=== PATIENT | male | born 1960 | race Caucasian/White ===

== ENCOUNTER 2020-01-28 16:28 | Inpatient (IN) | payer OTHER ==
[~2020-01-28 16:28] MED LIST: Iopamidol-370 76% 500 ML 1 ML ONE
[2020-01-28 17:26] LABS: Actual Bicarbonate (HCO3a) 34.2 mEq/L (22-28); Analyzer IN Cardio ER; Base Excess (BEa) 6.8 mEq/L (-2.0 to +3.0); CO2 Tension 59.4 mmHg (35.0-45.0); Calcium, Ionized (arterial) 1.21 mmol/L (1.12-1.30); Carboxyhemoglobin (COHb) 2.7 gm% (0.0-3.0); Hemoglobin (Hb) 15.7 g/dL (14.0-18.0); O2 Tension (PaO2), arterial 126.6 mmHg (80.0-100.0); Potassium - ABG Lab 3.89 mmol/L (3.70-5.30); pH, Arterial 7.38 (7.35-7.45)
[2020-01-28] MEDS ORDERED: Albuterol 200 PUFF (6.7GM INHALER) ONE (17:30)
[2020-01-28 17:38] LABS: Puncture Site LRA
[2020-01-28 17:41] LABS: #Basophils 0.1 thou/uL (0.0-0.2); #Eosinphils 0.1 thou/uL (0.0-0.7); #Lymphocytes 1.1 thou/uL (1.20-3.40); #Monocytes 0.6 thou/uL (0.11-0.59); #Neutrophils 8.5 thou/uL (1.40-6.50); %Basophils 0.7 % (0.0-1.0); %Eosinophils 0.8 % (0.0-10.0); %Lymphocytes 10.3 % (21.0-51.0); %Monocytes 5.9 % (0.0-10.0); %Neutrophils 82.2 % (42.0-75.0); Hemoglobin 15.2 g/dL (14.0-18.0); Mean Corpuscular HGB CONC 32.4 g/dL (32.0-36.0); Mean Corpuscular Hemoglobin 31.7 pg (27.0-31.0); Mean Platelet Volume 7.3 fL (7.4-10.4); Platelet Count 284 thou/uL (130-400); RBC Distribution Width 11.6 % (11.5-14.5); Red Blood Cell (RBC) Count 4.81 mill/uL (4.70-6.10); White Blood Cell (WBC) Count 10.3 thou/uL (4.8-10.8)
--- NOTE | 2020-01-28 17:47 | RAD ---
RADIOGRAPH CHEST 1 VIEW: DATE: 01/28/2020 HISTORY: 59-year-old male with dyspnea COMPARISON: None FINDINGS: There is hyperinflation of the lungs, consistent with COPD. There is a moderate sized triangular cruz on of opacification at right medial lung apex, with stranding and airspace opacity, chronic versus acute. There is no pulmonary edema, cardiomegaly or pneumothorax. The lateral costophrenic angles are not effaced. IMPRESSION: 1)nonspecific opacity at right medial lung apex. Uncertain whether chronic or acute. Consider CT 2) emphysema.
[2020-01-28 18:03] LABS: ALT (SGPT) 12 U/L (8-55); AST (SGOT) 17 U/L (5-34); Albumin 4.3 g/dL (3.5-5.0); Alcohol Less than 10 mg/dL (Less than 10); Alkaline Phosphatase 82 U/L (40-110); Anion Gap 15 mmol/L (10-20); BUN (Urea Nitrogen) 15 mg/dL (8.4-25.7); Bilirubin, Total 0.5 mg/dL (0.2-1.2); Calc. Creatinine Clearance 0 mL/min (70-130); Calcium 9.2 mg/dL (7.8-10.44); Carbon Dioxide 31 mmol/L (22-29); Chloride 102 mmol/L (98-107); Globulin 2.5 g/dL (2.4-3.5); Glucose 138 mg/dL (70-105); Protein, Total 6.8 g/dL (6.0-8.3); Sodium 144 mmol/L (136-145)
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
[2020-01-28] MEDS ORDERED: niCARdipine 20MG In NaCl 20 MG/200 ML BAG ONE ×3 (18:06→23:59)
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
[2020-01-28 18:44] LABS: Hemoglobin A1c 5.1 % (4.0-6.0)
[2020-01-28 18:45] LABS: PTT 30.3 sec (22.9-36.1); Prothrombin Time 12.8 sec (12.0-14.7)
[2020-01-28] MEDS ORDERED: cefTRIAXone\\ROCEPHIN 1 GM VIAL ONE (18:58)
[2020-01-28] MEDS ORDERED: Azithromycin 500 MG VIAL ONE (18:58)
[2020-01-28 19:09] LABS: SARS-CoV-2 NAA Rapid Test Not Detected (NotDetected)
[2020-01-28 19:22] LABS: Bacteria/HPF None Seen HPF (None Seen); Bilirubin Negative (Negative); Blood, Urine 1+ (Negative); Clarity Turbid (Clear); Glucose, Urine (Dipstick) Normal (Negative); Ketone, Urine Negative (Negative); Leukocyte Negative Leu/uL (Negative); Nitrite Negative (Negative); Protein, Urine (Dipstick) 10 mg/dL (Neg-Trace); Specific Gravity, Urine 1.038 (1.002-1.036); Squamous Epithelial None Seen HPF (0-3); Urobilinogen Normal mg/dL (Less than 2); WBC/HPF 0-3 HPF (0-3); pH, Urine 7.5 (5.0-9.0)
[2020-01-28 19:24] LABS: Amphetamine Not Detected (NotDetected); Barbiturates Screen Not Detected (NotDetected); Benzodiazepine Screen Not Detected (NotDetected); Cocaine Metabolite Screen Not Detected (NotDetected); Medtox Control Line Valid? VALID (VALID); Medtox Reader # READER 4; Methadone Not Detected (NotDetected); Methamphetamine Not Detected (NotDetected); Opiate Screen Not Detected (NotDetected); Oxycodone Screen Not Detected (NotDetected); Phencyclidine (PCP) Not Detected (NotDetected); THC/Cannabinoid Screen Detected (NotDetected); Tricyclic Screen Not Detected (NotDetected)
[2020-01-28] MEDS ORDERED: Milk Of Magnesia 30 ML UDCUP PO PRN (22:00)
[2020-01-28] MEDS ORDERED: Ondansetron PF 4 MG/2 ML Vial IVP PRN (22:00)
[2020-01-28] MEDS ORDERED: Bisacodyl 10 MG SUPP PR PRN (22:00)
[2020-01-28] MEDS ORDERED: Acetaminophen 325 MG TAB PO PRN (22:00)
[2020-01-28] MEDS ORDERED: Labetalol HCl 100 MG/20 ML VIAL SLOW IVP PRN (22:00)
[2020-01-28] MEDS ORDERED: Mag-Al 1200 mg/1200 mg/30 ML UDCUP PO PRN (22:00)
[2020-01-28] MEDS ORDERED: Ondansetron ODT 4 MG TAB PO PRN (22:06)
[2020-01-28] MEDS ORDERED: Lorazepam 1 MG TAB PO PRN (22:07)
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
[2020-01-28] MEDS ORDERED: Folic Acid 1 MG TAB PO SCH (22:15)
[2020-01-28] MEDS ORDERED: Thiamine 100 MG TAB PO SCH (22:15)
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
[2020-01-29] MEDS: Nitroglycerin 2% Ointment 1 INCH/1 GM Packet TOP SCH ×3 (02:27→13:02)
[2020-01-29] MEDS: niCARdipine 25 MG in Sodium Chloride 0.9% 250 ML 240 ML IVPB PRN ×4 (02:36→22:12)
[2020-01-29 03:48] LABS: #Basophils 0.1 thou/uL (0.0-0.2); #Eosinphils 0.1 thou/uL (0.0-0.7); #Lymphocytes 1.5 thou/uL (1.20-3.40); #Monocytes 0.8 thou/uL (0.11-0.59); #Neutrophils 7.5 thou/uL (1.40-6.50); %Basophils 0.7 % (0.0-1.0); %Eosinophils 0.8 % (0.0-10.0); %Lymphocytes 14.9 % (21.0-51.0); %Monocytes 8.1 % (0.0-10.0); %Neutrophils 75.4 % (42.0-75.0); Hemoglobin 14.5 g/dL (14.0-18.0); Mean Corpuscular HGB CONC 33.2 g/dL (32.0-36.0); Mean Corpuscular Volume 99.4 fL (78.0-98.0); Mean Platelet Volume 7.7 fL (7.4-10.4); Platelet Count 229 thou/uL (130-400); RBC Distribution Width 11.6 % (11.5-14.5); White Blood Cell (WBC) Count 9.9 thou/uL (4.8-10.8)
[2020-01-29 04:16] LABS: Anion Gap 12 mmol/L (10-20); BUN (Urea Nitrogen) 11 mg/dL (8.4-25.7); Calc. Creatinine Clearance 97 mL/min (70-130); Calcium 8.3 mg/dL (7.8-10.44); Carbon Dioxide 30 mmol/L (22-29); Cardiac Risk 2.7 (Less than 4.5); Chloride 105 mmol/L (98-107); Cholesterol 170 mg/dl (< 200 Desired); Glucose 118 mg/dL (70-105); HDL Cholesterol 63 mg/dL (>60 Neg Risk); LDL Cholesterol, Calculated 96 mg/dL; Magnesium 1.9 mg/dL (1.6-2.6); Sodium 143 mmol/L (136-145); Triglycerides 53 mg/dL (Less than 150); Troponin I 0.019 ng/mL (< 0.028)
--- NOTE | 2020-01-29 07:57 | CT ---
PRELIMINARY REPORT/[facility]/EMERGENCY AFTER HOURS PROCEDURE: EXAM: CT Head Without Intravenous Contrast. CLINICAL HISTORY: Change in NIH TECHNIQUE: Axial computed tomography images of the head/brain without intravenous contrast. COMPARISON: January 28, 2020 FINDINGS: BRAIN: Stable hemorrhage in the left thalamus with stable intraventricular hemorrhage and hydrocephal us. No new hemorrhage, mass-effect, midline shift or vascular territory stroke. ORBITS: The orbits are unremarkable. SINUSES AND MASTOIDS: The paranasal sinuses and mastoid air cells are clear. SOFT TISSUES: No significant facial or scalp soft tissue swelling evident. No radiopaque foreign body is seen. BONES: No acute skull fracture. IMPRESSION: Stable hemorrhage in the left thalamus with stable intraventricular hemorrhage and hydroc ephalus. ELECTRONICALLY SIGNED BY: Aline Ramirez MD Jan 29, 2020 12:32:06 AM [facility] FINAL REPORT EMERGENT AFTER HOURS CT OF THE BRAIN WITHOUT CONTRAST: COMPARISON: 01/28/2020. FINDINGS/IMPRESSION: I agree with the findings and impression given in the preliminary report per [facility] physici an. There is a stable thalamic hemorrhage extending into the lateral ventricles with stable enlargem ent of the lateral ventricles. Very minimal midline shift is seen. No significant change has occurr ed compared to the prior examination. POS: EAA
[2020-01-29] MEDS: Carvedilol 6.25 MG TAB PO SCH ×2 (08:26→17:42)
[2020-01-29] MEDS: Cyanocobalamin (Vitamin B-12) 1,000 MCG TAB PO SCH (08:26)
[2020-01-29] MEDS: cloNIDine 0.1 MG TAB PO SCH ×2 (08:26→20:21)
[2020-01-29] MEDS: Folic Acid 1 MG TAB PO SCH (08:26)
[2020-01-29] MEDS: Famotidine 20 MG TAB PO SCH ×2 (08:26→20:22)
[2020-01-29] MEDS: Docusate 100 MG CAP PO SCH ×2 (08:26→20:22)
[2020-01-29] MEDS: Thiamine 100 MG TAB PO SCH (08:27)
[2020-01-29] MEDS: Multivit, Therapeutic 1 TAB PO SCH (08:27)
--- NOTE | 2020-01-29 08:45 | CT ---
CT OF THE BRAIN WITHOUT CONTRAST: COMPARISON: 01/29/2020. HISTORY: Intracranial hemorrhage. TECHNIQUE: Multiple contiguous axial images were obtained in a CTA of the brain without contrast. FINDINGS: There is a stable left thalamic hemorrhage extending into the lateral ventricles. There is a large a mount of intraventricular hemorrhage. There is prominence of the lateral ventricles. No significant change has occurred compared to the prior examination. Blood is seen in the 4th ventricle. There a re scattered hypodensities in the subcortical and periventricular white matter, likely secondary to s mall-vessel ischemic disease. The calvarium and overlying soft tissues are unremarkable. The visualized paranasal sinuses and mast oid air cells are well aerated. IMPRESSION: Stable left thalamic and interventricular hemorrhage as above. POS: EAA
[2020-01-29] MEDS ORDERED: cefTRIAXone\\ROCEPHIN 1 GM in Sodium Chloride 0.9% 100 ML IVPB SCH ×2 (09:00→19:00)
[2020-01-29] MEDS: Famotidine/PF 20 mg/2ml Vial SLOW IVP SCH ×2 (09:44→20:22)
--- NOTE | 2020-01-29 13:27 | PDOC.HOSPP ---
- Subjective Encounter Date: 01/29/20 Encounter Time: 10:30 Subjective: Patient seen and examined for intracranial bleed. NIH 5 per RN. Overnight events noted. Patient was evaluated by neurosurgery this morning. Repeat CT scan stable. Family updated by neurosurgery this morning. - Objective Vital Signs & Weight: Vital Signs (12 hours) Temp Pulse Ox 01/29/20 12:00 98.8 F 01/29/20 07:52 100 01/29/20 07:00 98.7 F 01/29/20 04:00 98.3 F 01/29/20 01:31 100 Weight Weight 139 lb 5.314 oz Most Recent Monitor Data Heart Rate from ECG 83 NIBP 129/77 NIBP BP-Mean 94 Respiration from ECG 27 SpO2 99 I&O: 01/28/20 01/29/20 01/30/20 06:59 06:59 06:59 Intake Total 254.8 Output Total 420 700 Balance -165.2 -700 Result Diagrams: 01/29/20 03:06 01/29/20 03:06 Additional Labs: Accuchecks 01/29/20 01/29/20 01/29/20 12:33 06:34 00:51 POC Glucose 104 H 104 H 124 H Radiology Reviewed by me: Yes (CT brain - no worsening) EKG Reviewed by me: Yes (SR on tel) Hospitalist ROS - Review of Systems ROS unobtainable: due to mental status - Medication Medications: Active Medications Generic Name Dose Route Start Last Admin Trade Name Freq PRN Reason Stop Dose Admin Carvedilol 12.5 mg 01/29/20 08:00 01/29/20 08:26 Carvedilol 6.25 Mg Tab PO Not Given BID-WM LIZ Clonidine 0.1 mg 01/29/20 09:00 01/29/20 08:26 Clonidine 0.1 Mg Tab PO Not Given BID LIZ Cyanocobalamin 1,000 mcg 01/29/20 09:00 01/29/20 08:26 Cyanocobalamin (Vitamin B-12) 1,000 Mcg Tab PO Not Given DAILY LIZ Docusate Sodium 100 mg 01/29/20 09:00 01/29/20 08:26 Docusate 100 Mg Cap PO Not Given BID LIZ Famotidine 20 mg 01/29/20 09:00 01/29/20 09:44 Famotidine/Pf 20 Mg/2ml Vial SLOW IVP 20 mg Q12HR LIZ Administration Famotidine 20 mg 01/29/20 09:00 01/29/20 08:26 Famotidine 20 Mg Tab PO Not Given BID LIZ Folic Acid 1 mg 01/29/20 09:00 01/29/20 08:26 Folic Acid 1 Mg Tab PO Not Given DAILY [facility] Nicardipine HCl 25 mg/ Sodium 250 mls @ 0 mls/hr 01/28/20 22:00 01/29/20 02:36 Chloride IVPB 250 mls INF PRN Administration SBP > 140 Protocol Titrate Multivitamins 1 tab 01/29/20 09:00 01/29/20 08:27 Multivit, Therapeutic 1 Tab PO Not Given DAILY [facility] Nitroglycerin 0.5 inch 01/28/20 22:00 01/29/20 13:02 Nitroglycerin 2% Ointment 1 Inch/1 Gm Packet TOP Not Given Q8HR [facility] Thiamine HCl 100 mg 01/29/20 09:00 01/29/20 08:27 Thiamine 100 Mg Tab PO Not Given DAILY [facility] - Exam General Appearance: NAD Neck: supple, symmetric, no JVD, no thyromegaly Heart: RRR, no gallops, no rubs Respiratory: no wheezes, no rales, no ronchi, normal chest expansion Gastrointestinal: soft, non-tender, non-distended, normal bowel sounds, no guarding, no rigidity Extremities: no cyanosis, no clubbing Skin: normal turgor Neurological: no new deficit Neurological - other findings: NIH of 5 per job placement specialist: normal affect Psychiatric - other findings: Intermittent confusion Hosp A/P - Plan DVT proph w/SCDs Encephalopathy due to intracranial bleed Hypertensive emergency on Cardene drip History of hypertensionnoncompliant with medication Acute hypoxic respiratory failure requiring noninvasive positive pressure ventilation in the emergency room Suspected COPD with COPD exacerbation Tobacco abuse CKD stage II Cannabis abuse Medication noncompliance Swallow dysfunction Plan: Continue CCU monitoring. Continue Cardene drip. Continue neurochecks. Await speech therapy input. Continue GI prophylaxis. DVT prophylaxis with SCDs. A.m. labs. Continue other medications as above. Add hypoglycemia protocol. Continue other medications as above. Add echocardiogram. Stroke team. Ceftriaxone added for COPD exacerbation. Continue nebulizer treatments. Consult palliative care in a.m. for goals of care.
[2020-01-29] MEDS ORDERED: Sodium Chloride 0.9% 1,000 ML IV SCH (13:45)
[2020-01-29] MEDS: Sodium Chloride 0.9% 1,000 ML IV SCH (17:41)
[2020-01-29] MEDS ORDERED: FLU VACC QS2020-21(6MOS UP)/PF 60 MCG/0.5 ML SYRINGE IM ONE (21:00)
[2020-01-29] MEDS ORDERED: Labetalol HCl 100 MG/20 ML VIAL ONE (22:10)
[2020-01-30] MEDS: niCARdipine 25 MG in Sodium Chloride 0.9% 250 ML 240 ML IVPB PRN (02:07)
[2020-01-30 04:01] LABS: #Eosinphils 0.1 thou/uL (0.0-0.7); #Lymphocytes 1.9 thou/uL (1.20-3.40); #Neutrophils 8.3 thou/uL (1.40-6.50); %Basophils 0.4 % (0.0-1.0); %Eosinophils 0.6 % (0.0-10.0); %Lymphocytes 16.8 % (21.0-51.0); %Monocytes 8.4 % (0.0-10.0); %Neutrophils 73.7 % (42.0-75.0); Hemoglobin 13.2 g/dL (14.0-18.0); Mean Corpuscular HGB CONC 33.6 g/dL (32.0-36.0); Mean Corpuscular Hemoglobin 32.3 pg (27.0-31.0); Mean Platelet Volume 7.6 fL (7.4-10.4); Platelet Count 240 thou/uL (130-400); RBC Distribution Width 11.3 % (11.5-14.5); White Blood Cell (WBC) Count 11.2 thou/uL (4.8-10.8)
[2020-01-30 04:20] LABS: Anion Gap 12 mmol/L (10-20); BUN (Urea Nitrogen) 15 mg/dL (8.4-25.7); Calc. Creatinine Clearance 87 mL/min (70-130); Calcium 8.8 mg/dL (7.8-10.44); Carbon Dioxide 28 mmol/L (22-29); Chloride 101 mmol/L (98-107); Glucose 118 mg/dL (70-105); Magnesium 1.8 mg/dL (1.6-2.6); Potassium 3.9 mmol/L (3.5-5.1); Sodium 137 mmol/L (136-145)
--- NOTE | 2020-01-30 07:50 | PRG ---
DATE OF SERVICE: 01/30/2020 SUBJECTIVE: The patient says he is doing okay. He had no acute complaints. Nursing staff tells me that he is confused at times. He has been weaned off his nicardipine drip, passed a swallow study. OBJECTIVE: VITAL SIGNS: Temperature 97.6, pulse 84, blood pressure 137/87, and O2 saturation 100%. HEENT: Pupils are reactive. Sclerae anicteric. Oropharynx clear. Extraocular movements are intact. Tongue protrudes midline. NECK: No adenopathy or JVD. LUNGS: Clear to auscultation bilaterally. CARDIOVASCULAR: S1 and S2. Regular. No murmur. ABDOMEN: Soft and nontender to palpation. EXTREMITIES: No clubbing, cyanosis, or edema. He has equal strength throughout with the exception of his left hand where he is somewhat weak on elevator tender strength. LABORATORY DATA: White blood cell count 11.2, hematocrit 39.3, and platelet count 240. Sodium 137, potassium 3.9, chloride 101, CO2 of 28, BUN 15, creatinine 0.8, and glucose 118. ASSESSMENT: 1. Intracranial hemorrhage. 2. Hypertension. PLAN: He is stable for move to the stroke floor. He will continue carvedilol for hypertension. He has been put on ceftriaxone for antibiotic coverage related to COPD exacerbation. At the current time, he is not requiring steroids. I think he could be transitioned to oral antibiotics immediately. Job ID: [id number]
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
[2020-01-30] MEDS ORDERED: Magnesium Sulfate 2 GM in Sodium Chloride 0.9% 100 ML IVPB SCH (08:00)
[2020-01-30] MEDS ORDERED: Magnesium 2 GM/50 ML 2 GM in Premix Bag 1 BAG IVPB SCH (08:00)
[2020-01-30] MEDS: Carvedilol 6.25 MG TAB PO SCH ×2 (08:16→15:57)
[2020-01-30] MEDS: Cefdinir 300 MG CAP PO SCH (08:17)
[2020-01-30] MEDS: cloNIDine 0.1 MG TAB PO SCH ×2 (08:17→21:22)
[2020-01-30] MEDS: Famotidine 20 MG TAB PO SCH ×2 (08:18→21:22)
[2020-01-30] MEDS: Folic Acid 1 MG TAB PO SCH (08:18)
[2020-01-30] MEDS: Cyanocobalamin (Vitamin B-12) 1,000 MCG TAB PO SCH (08:18)
[2020-01-30] MEDS: Thiamine 100 MG TAB PO SCH (08:18)
[2020-01-30] MEDS: Famotidine/PF 20 mg/2ml Vial SLOW IVP SCH (08:18)
[2020-01-30] MEDS: Docusate 100 MG CAP PO SCH (08:18)
[2020-01-30] MEDS: Multivit, Therapeutic 1 TAB PO SCH (08:18)
--- NOTE | 2020-01-30 08:41 | PRG ---
DATE OF SERVICE: 01/30/2020 SUBJECTIVE: The patient remains stable in the ICU. His blood pressure is improved and he is no longer requiring Cardene. He passed the swallow evaluation. He was evaluated by Critical Care, who felt that he could be transferred over to the stroke unit. This morning on exam, he awakens easily to voice. He is able to tell me his name, but not the year or location. He is moving all 4s without any difficulty. The patient appears stable neurologically and we agree that he can be transitioned over to the stroke floor. He will continue require PT, OT, and slowly advance his diet. I feel that he would be a good candidate for inpatient rehabilitation and a screen has been ordered. Job ID: [id number] [facility]
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
--- NOTE | 2020-01-30 09:07 | PRG ---
DATE OF SERVICE: 01/30/2020 Mr. Plummer is alert and interactive. He does seem somewhat disoriented, but remains nonfocal. His Medical Team is satisfied with his blood pressure management and have recommended transfer to the floor, which seems reasonable. No neurosurgical intervention planned at this time. Job ID: [id number]
--- NOTE | 2020-01-30 14:29 | PDOC.HOSPP ---
- Subjective Encounter Date: 01/30/20 Encounter Time: 09:00 Subjective: Patient seen and examined for intracranial bleed due to uncontrolled hypertension. Mentation improving. Cleared by speech therapy for swallowing. Denies new headache, double vision, blurring of vision or new focal deficit. Denies any chest pain or shortness of breath. - Objective Vital Signs & Weight: Vital Signs (12 hours) Temp Pulse Resp BP BP Pulse Ox 01/30/20 11:17 97.4 F L 70 12 114/71 98 01/30/20 08:17 118/75 01/30/20 08:16 118/75 01/30/20 08:00 97.8 F 01/30/20 07:48 100 01/30/20 07:00 97.8 F 01/30/20 04:00 97.6 F Weight Admit Weight 140 lb Weight 140 lb 10.479 oz Most Recent Monitor Data Heart Rate from ECG 87 NIBP 128/76 NIBP BP-Mean 93 Respiration from ECG 30 SpO2 99 I&O: 01/29/20 01/30/20 01/31/20 06:59 06:59 06:59 Intake Total 254.8 1443 200 Output Total 420 1271 200 Balance -165.2 172 0 Result Diagrams: 01/30/20 03:29 01/30/20 03:29 Additional Labs: Accuchecks 01/30/20 01/30/20 01/29/20 05:21 00:18 17:32 POC Glucose 99 135 H 151 H Abnormal Lab Results - Last 48 hrs 01/28/20 17:18: Bicarbonate Actual 34.2 H, ABG pCO2 59.4 H, ABG pO2 126.6 H, ABG O2 Sat (Measured) 98.2 H, ABG O2 Content 21.1 H, ABG Base Excess 6.8 H, A-a O2 Gradient 48.700 H 01/28/20 17:26: Carbon Dioxide 31 H 01/28/20 17:26: MCH 31.7 H, MPV 7.3 L, Neutrophils % 82.2 H, Lymphocytes % 10.3 L, Neutrophils # 8.5 H, Lymphocytes # 1.1 L, Monocytes # 0.6 H 01/28/20 18:48: Urine Clarity Turbid A, Ur Specific [place] 1.038 H, Urine Blood 1+ A, Urine RBC 7-10 A, Amorphous Crystals 1+ A 01/28/20 18:48: U Cannabinoids Screen Detected H 01/29/20 03:06: Carbon Dioxide 30 H 01/29/20 03:06: RBC 4.40 L, MCV 99.4 H, MCH 33.0 H, Neutrophils % 75.4 H, Lymphocytes % 14.9 L, Neutrophils # 7.5 H, Monocytes # 0.8 H 01/30/20 03:29: WBC 11.2 H, RBC 4.10 L, Hgb 13.2 L, Hct 39.3 L, MCH 32.3 H, RDW 11.3 L, Lymphocytes % 16.8 L, Neutrophils # 8.3 H, Monocytes # 1.0 H Microbiology - Entire Visit 01/28/20 18:21 Venous blood - Right Arm Blood Culture - Preliminary NO GROWTH AT 48 HOURS 01/28/20 18:25 Venous blood - Left Arm Blood Culture - Preliminary NO GROWTH AT 48 HOURS EKG Reviewed by me: Yes (Sinus rhythm on telemetry) Hospitalist ROS - Review of Systems Respiratory: denies: cough, dry, shortness of breath, hemoptysis, SOB with excertion, pleuritic pain, sputum, wheezing, other Cardiovascular: denies: chest pain, palpitations, orthopnea, paroxysmal noc. dyspnea, edema, light headedness, other - Medication Medications: Active Medications Generic Name Dose Route Start Last Admin Trade Name Freq PRN Reason Stop Dose Admin Carvedilol 12.5 mg 01/29/20 08:00 01/30/20 08:16 Carvedilol 6.25 Mg Tab PO 12.5 mg BID- LIZ Administration Cefdinir 600 mg 01/30/20 09:00 01/30/20 08:17 Cefdinir 300 Mg Cap PO 600 mg DAILY LIZ Administration Clonidine 0.1 mg 01/29/20 09:00 01/30/20 08:17 Clonidine 0.1 Mg Tab PO 0.1 mg BID LIZ Administration Cyanocobalamin 1,000 mcg 01/29/20 09:00 01/30/20 08:18 Cyanocobalamin (Vitamin B-12) 1,000 Mcg Tab PO 1,000 mcg DAILY LIZ Administration Docusate Sodium 100 mg 01/29/20 09:00 01/30/20 08:18 Docusate 100 Mg Cap PO 100 mg BID LIZ Administration Famotidine 20 mg 01/29/20 09:00 01/30/20 08:18 Famotidine 20 Mg Tab PO 20 mg BID LIZ Administration Folic Acid 1 mg 01/29/20 09:00 01/30/20 08:18 Folic Acid 1 Mg Tab PO 1 mg DAILY LIZ Administration Sodium Chloride 1,000 mls @ 30 mls/hr 01/29/20 17:36 01/29/20 17:41 Normal Saline 0.9% IV Not Given .Q24H LIZ Multivitamins 1 tab 01/29/20 09:00 01/30/20 08:18 Multivit, Therapeutic 1 Tab PO 1 tab DAILY LIZ Administration Thiamine HCl 100 mg 01/29/20 09:00 01/30/20 08:18 Thiamine 100 Mg Tab PO 100 mg DAILY LIZ Administration - Exam General Appearance: NAD Neck: supple, no JVD Heart: RRR, no gallops, no rubs, normal peripheral pulses Respiratory: CTAB, no wheezes, no rales, no ronchi Gastrointestinal: non-tender, non-distended, normal bowel sounds, no palpable masses Extremities: no cyanosis, no clubbing, no edema Skin: normal turgor Psychiatric: normal affect, A&O x 3 Hosp A/P - Plan DVT proph w/SCDs Encephalopathy due to intracranial bleed Hypertensive emergency -s/p Cardene drip History of hypertensionnoncompliant with medication Acute hypoxic respiratory failure requiring noninvasive positive pressure ventilation in the emergency room Suspected COPD with COPD exacerbation Tobacco abuse Hypomagnesemia CKD stage II Cannabis abuse Medication noncompliance Swallow dysfunction Plan: Transfer to stroke unit. Replace magnesium. Continue carvedilol with clonidine. Continue vitamin supplementation. Discontinue Accu-Cheks. Counseled on tobacco cessation. Consult case management for discharge planning. Change Pepcid to p.o. Continue physical therapy/Occupational Therapy. Continue other medications as above. Patient is not on antiplatelet agent due to intracranial bleed.
[2020-01-30] MEDS: Sodium Chloride 0.9% 1,000 ML IV SCH (15:58)
[2020-01-30] MEDS: Nicotine 14 MG PATCH TD PRN (18:40)
[2020-01-30] MEDS: Senokot S 8.6-50 MG TAB PO SCH (21:22)
[2020-01-31 05:06] LABS: #Basophils 0.1 thou/uL (0.0-0.2); #Eosinphils 0.2 thou/uL (0.0-0.7); #Neutrophils 5.4 thou/uL (1.40-6.50); %Basophils 0.8 % (0.0-1.0); %Eosinophils 2.7 % (0.0-10.0); %Lymphocytes 23.1 % (21.0-51.0); %Monocytes 11.7 % (0.0-10.0); %Neutrophils 61.7 % (42.0-75.0); Hemoglobin 13.1 g/dL (14.0-18.0); Mean Corpuscular HGB CONC 32.3 g/dL (32.0-36.0); Mean Corpuscular Hemoglobin 31.6 pg (27.0-31.0); Mean Corpuscular Volume 97.7 fL (78.0-98.0); Mean Platelet Volume 7.4 fL (7.4-10.4); Platelet Count 232 thou/uL (130-400); RBC Distribution Width 11.5 % (11.5-14.5); Red Blood Cell (RBC) Count 4.13 mill/uL (4.70-6.10); White Blood Cell (WBC) Count 8.7 thou/uL (4.8-10.8)
[2020-01-31 05:38] LABS: Anion Gap 11 mmol/L (10-20); BUN (Urea Nitrogen) 14 mg/dL (8.4-25.7); Calc. Creatinine Clearance 85 mL/min (70-130); Calcium 8.5 mg/dL (7.8-10.44); Carbon Dioxide 32 mmol/L (22-29); Chloride 99 mmol/L (98-107); Glucose 103 mg/dL (70-105); Potassium 3.8 mmol/L (3.5-5.1); Sodium 138 mmol/L (136-145)
[2020-01-31] MEDS: Carvedilol 6.25 MG TAB PO SCH ×2 (07:39→18:12)
[2020-01-31] MEDS ORDERED: FLU VACC QS2020-21(6MOS UP)/PF 60 MCG/0.5 ML SYRINGE IM ONE (09:00)
[2020-01-31] MEDS ORDERED: methylPREDNISolone Sod Succ/PF 125 MG/2 ML VIAL IVP SCH (10:00)
[2020-01-31] MEDS: Folic Acid 1 MG TAB PO SCH (10:09)
[2020-01-31] MEDS: Cyanocobalamin (Vitamin B-12) 1,000 MCG TAB PO SCH (10:09)
[2020-01-31] MEDS: Multivit, Therapeutic 1 TAB PO SCH (10:09)
[2020-01-31] MEDS: Senokot S 8.6-50 MG TAB PO SCH ×2 (10:09→20:45)
[2020-01-31] MEDS: Thiamine 100 MG TAB PO SCH (10:09)
[2020-01-31] MEDS: cloNIDine 0.1 MG TAB PO SCH ×2 (10:10→20:46)
[2020-01-31] MEDS: Famotidine 20 MG TAB PO SCH ×2 (10:10→20:45)
[2020-01-31] MEDS: Polyethylene Glycol 3350 17 GM Packet PO SCH (10:10)
[2020-01-31] MEDS: Cefdinir 300 MG CAP PO SCH (10:10)
--- NOTE | 2020-01-31 10:11 | PDOC.HOSPP ---
- Subjective Encounter Date: 01/31/20 Encounter Time: 09:30 Subjective: Patient seen and examined for intracranial bleed. Denies any new focal neurologic deficit. No chest pain, shortness of breath or palpitations reported. - Objective Vital Signs & Weight: Vital Signs (12 hours) Temp Pulse Resp BP Pulse Ox 01/31/20 07:28 97.5 F L 82 20 152/83 H 99 01/31/20 04:00 97.7 F 72 16 134/92 H 100 01/31/20 01:12 100 01/31/20 00:00 97.8 F 67 16 119/81 100 Weight Admit Weight 140 lb Weight 140 lb 10.479 oz Most Recent Monitor Data Heart Rate from ECG 87 NIBP 128/76 NIBP BP-Mean 93 Respiration from ECG 30 SpO2 99 I&O: 01/30/20 01/31/20 02/01/20 06:59 06:59 06:59 Intake Total 1443 590 150 Output Total 1271 500 350 Balance 172 90 -200 Result Diagrams: 01/31/20 04:50 01/31/20 04:50 Additional Labs: Abnormal Lab Results - Last 48 hrs 01/30/20 03:29: WBC 11.2 H, RBC 4.10 L, Hgb 13.2 L, Hct 39.3 L, MCH 32.3 H, RDW 11.3 L, Lymphocytes % 16.8 L, Neutrophils # 8.3 H, Monocytes # 1.0 H 01/31/20 04:50: Carbon Dioxide 32 H 01/31/20 04:50: RBC 4.13 L, Hgb 13.1 L, Hct 40.4 L, MCH 31.6 H, Monocytes % 11.7 H, Monocytes # 1.0 H Microbiology - Entire Visit 01/28/20 18:21 Venous blood - Right Arm Blood Culture - Preliminary NO GROWTH AT 48 HOURS 01/28/20 18:25 Venous blood - Left Arm Blood Culture - Preliminary NO GROWTH AT 48 HOURS EKG Reviewed by me: Yes (Sinus rhythm on telemetry.) Hospitalist ROS - Review of Systems Respiratory: denies: cough, dry, shortness of breath, hemoptysis, SOB with excertion, pleuritic pain, sputum, wheezing, other Cardiovascular: denies: chest pain, palpitations, orthopnea, paroxysmal noc. dyspnea, edema, light headedness, other - Medication Medications: Active Medications Generic Name Dose Route Start Last Admin Trade Name Jenn PRN Reason Stop Dose Admin Carvedilol 12.5 mg 01/29/20 08:00 01/31/20 07:39 Carvedilol 6.25 Mg Tab PO 12.5 mg BID-WM LIZ Administration Cefdinir 600 mg 01/30/20 09:00 01/30/20 08:17 Cefdinir 300 Mg Cap PO 600 mg DAILY LIZ Administration Clonidine 0.1 mg 01/29/20 09:00 01/30/20 21:22 Clonidine 0.1 Mg Tab PO 0.1 mg BID LIZ Administration Cyanocobalamin 1,000 mcg 01/29/20 09:00 01/30/20 08:18 Cyanocobalamin (Vitamin B-12) 1,000 Mcg Tab PO 1,000 mcg DAILY LIZ Administration Famotidine 20 mg 01/29/20 09:00 01/30/20 21:22 Famotidine 20 Mg Tab PO 20 mg BID LIZ Administration Folic Acid 1 mg 01/29/20 09:00 01/30/20 08:18 Folic Acid 1 Mg Tab PO 1 mg DAILY LIZ Administration Sodium Chloride 1,000 mls @ 30 mls/hr 01/29/20 17:36 01/30/20 15:58 Normal Saline 0.9% IV 1,000 mls .Q24H LIZ Administration Multivitamins 1 tab 01/29/20 09:00 01/30/20 08:18 Multivit, Therapeutic 1 Tab PO 1 tab DAILY LIZ Administration Nicotine 14 mg 01/30/20 18:05 01/30/20 18:40 Nicotine 14 Mg Patch TD 14 mg Q24H PRN Administration Smoking craving Senna/Docusate Sodium 2 tab 01/30/20 21:00 01/30/20 21:22 Senokot S 8.6-50 Mg Tab PO 2 tab BID LIZ Administration Thiamine HCl 100 mg 01/29/20 09:00 01/30/20 08:18 Thiamine 100 Mg Tab PO 100 mg DAILY LIZ Administration - Exam General Appearance: NAD Neck: supple, no JVD Heart: RRR, no gallops Respiratory: no ronchi, rhonchi Gastrointestinal: soft, non-distended Extremities: no cyanosis Neurological: no new deficit Psychiatric: normal affect, A&O x 3 Hosp A/P - Plan DVT proph w/SCDs Encephalopathy due to intracranial bleed involving the left thalamus with intraventricular hemorrhage Hypertensive emergency -s/p Cardene drip History of hypertensionnoncompliant with medication Acute hypoxic respiratory failure requiring noninvasive positive pressure ventilation in the emergency room Suspected COPD with COPD exacerbation with questionable pneumoniaprobably gram- negative Tobacco abusecounseled Hypomagnesemia CKD stage II Cannabis abusecounseled Medication noncompliance Swallow dysfunction Plan: Continue neurochecks. Continue current dose of carvedilol with clonidine. On Omnicef. Continue current medications as above discontinue IV fluid. Continue physical therapy/Occupational Therapy/speech therapy. Await rehab eval. Co ntinue DVT and GI prophylaxis.
--- NOTE | 2020-01-31 13:42 | PRG ---
DATE OF SERVICE: 01/31/2020 Mr. Plummer is arousable and interactive. He has his ups and downs, but generally is neurologically preserved, although somewhat confused. He can continue to be mobilized and ultimately will likely benefit from rehab. No plans for neurosurgical intervention at this time. We will arrange a 4-week outpatient followup CT scan. Job ID: [id number]
--- NOTE | 2020-01-31 14:50 | PRG ---
DATE OF SERVICE: 01/31/2020 SUBJECTIVE: Mau Plummer is weak and has difficulty following commands. He is in no distress, but he does have a long expiratory phase. His says he quit smoking a year ago. He is only receiving metered-dose inhaler and p.r.n. nebs. OBJECTIVE: VITAL SIGNS: He is afebrile. Heart rates in the 70s, respiratory rate is 20, oximetry is 98% on 2 L cannula, blood pressure 156/70. LUNGS: Remarkable for distant wheezes. HEART: Regular rhythm. ABDOMEN: Soft. IMPRESSION: 1. Brain hemorrhage with ventricular blood seen on CT. 2. Chronic obstructive pulmonary disease with acute exacerbation. I have added steroids and nebulized treatments routinely. We will follow. Job ID: [id number]
[2020-02-01] MEDS: cloNIDine 0.1 MG TAB PO PRN (04:46)
[2020-02-01 05:56] LABS: #Eosinphils 0.1 thou/uL (0.0-0.7); #Monocytes 1.3 thou/uL (0.11-0.59); #Neutrophils 9.4 thou/uL (1.40-6.50); %Basophils 0.2 % (0.0-1.0); %Eosinophils 0.4 % (0.0-10.0); %Lymphocytes 15.9 % (21.0-51.0); %Monocytes 9.9 % (0.0-10.0); %Neutrophils 73.5 % (42.0-75.0); Hemoglobin 13.6 g/dL (14.0-18.0); Mean Corpuscular HGB CONC 33.2 g/dL (32.0-36.0); Mean Corpuscular Hemoglobin 31.9 pg (27.0-31.0); Mean Corpuscular Volume 95.9 fL (78.0-98.0); Mean Platelet Volume 7.4 fL (7.4-10.4); Platelet Count 252 thou/uL (130-400); RBC Distribution Width 11.3 % (11.5-14.5); Red Blood Cell (RBC) Count 4.26 mill/uL (4.70-6.10); White Blood Cell (WBC) Count 12.8 thou/uL (4.8-10.8)
[2020-02-01 06:18] LABS: Anion Gap 12 mmol/L (10-20); BUN (Urea Nitrogen) 16 mg/dL (8.4-25.7); Calc. Creatinine Clearance 88 mL/min (70-130); Calcium 8.8 mg/dL (7.8-10.44); Carbon Dioxide 30 mmol/L (22-29); Chloride 99 mmol/L (98-107); Glucose 107 mg/dL (70-105); Potassium 3.7 mmol/L (3.5-5.1); Sodium 137 mmol/L (136-145)
[2020-02-01] MEDS: Carvedilol 6.25 MG TAB PO SCH ×2 (07:57→16:25)
[2020-02-01] MEDS: cloNIDine 0.1 MG TAB PO SCH ×3 (07:58→20:16)
[2020-02-01] MEDS: Folic Acid 1 MG TAB PO SCH (07:58)
[2020-02-01] MEDS: Cefdinir 300 MG CAP PO SCH (07:58)
[2020-02-01] MEDS: Thiamine 100 MG TAB PO SCH (07:58)
[2020-02-01] MEDS: Famotidine 20 MG TAB PO SCH ×2 (07:58→20:15)
[2020-02-01] MEDS: Senokot S 8.6-50 MG TAB PO SCH ×2 (07:58→20:16)
[2020-02-01] MEDS: Multivit, Therapeutic 1 TAB PO SCH (07:58)
[2020-02-01] MEDS: Polyethylene Glycol 3350 17 GM Packet PO SCH (07:59)
[2020-02-01] MEDS: Cyanocobalamin (Vitamin B-12) 1,000 MCG TAB PO SCH (07:59)
[2020-02-01] MEDS: methylPREDNISolone Sod Succ/PF 125 MG/2 ML VIAL IVP SCH (07:59)
--- NOTE | 2020-02-01 09:16 | RAD ---
PORTABLE CHEST 1 VIEW: Date: 02/01/2020 Time: 0719 hours HISTORY: COPD. COMPARISON: 01/28/2020. FINDINGS/IMPRESSION: The heart size is normal. The aorta is tortuous. The lungs are expanded without lobar consolidation, pneumothoraces, or pleural effusions. Opacity in the right lung apex is again seen. POS: [facility]
--- NOTE | 2020-02-01 10:14 | PDOC.HOSPP ---
- Subjective Encounter Date: 02/01/20 Encounter Time: 09:30 Subjective: Patient seen and examined for intracranial bleed with COPD exacerbation. Denies new focal deficit. Mild dry cough. Denies any chest pain, shortness of breath or fever. - Objective Vital Signs & Weight: Vital Signs (12 hours) Temp Pulse Resp BP Pulse Ox 02/01/20 08:02 97.7 F 75 20 161/93 H 92 L 02/01/20 06:44 79 20 02/01/20 03:59 98.2 F 81 20 141/81 H 98 02/01/20 01:59 76 18 88 L 02/01/20 01:38 96 01/31/20 23:50 97.5 F L 80 18 127/79 96 Weight Admit Weight 140 lb Weight 148 lb 14.4 oz Most Recent Monitor Data Heart Rate from ECG 87 NIBP 128/76 NIBP BP-Mean 93 Respiration from ECG 30 SpO2 99 I&O: 01/31/20 02/01/20 02/02/20 06:59 06:59 06:59 Intake Total 590 960 Output Total 500 901 Balance 90 59 Result Diagrams: 02/01/20 05:29 02/01/20 05:29 Additional Labs: Accuchecks 02/01/20 02/01/20 05:17 00:11 POC Glucose 101 H 130 H Abnormal Lab Results - Last 48 hrs 01/31/20 04:50: Carbon Dioxide 32 H 01/31/20 04:50: RBC 4.13 L, Hgb 13.1 L, Hct 40.4 L, MCH 31.6 H, Monocytes % 11.7 H, Monocytes # 1.0 H 02/01/20 05:29: Carbon Dioxide 30 H 02/01/20 05:29: WBC 12.8 H, RBC 4.26 L, Hgb 13.6 L, Hct 40.8 L, MCH 31.9 H, RDW 11.3 L, Lymphocytes % 15.9 L, Neutrophils # 9.4 H, Monocytes # 1.3 H Microbiology - Entire Visit 01/28/20 18:21 Venous blood - Right Arm Blood Culture - Preliminary NO GROWTH AT 48 HOURS 01/28/20 18:25 Venous blood - Left Arm Blood Culture - Preliminary NO GROWTH AT 48 HOURS Radiology Reviewed by me: Yes (Chest x-rayno infiltrate) EKG Reviewed by me: Yes (Sinus rhythm on telemetry) Hospitalist ROS - Review of Systems Cardiovascular: denies: chest pain, palpitations, orthopnea, paroxysmal noc. dyspnea, edema, light headedness, other Gastrointestinal: denies: nausea, vomiting, abdominal pain, diarrhea, constipation, melena, hematochezia, other - Medication Medications: Active Medications Generic Name Dose Route Start Last Admin Trade Name Freq PRN Reason Stop Dose Admin Albuterol/Ipratropium 3 ml 01/31/20 10:30 02/01/20 06:44 Ipratropium/Albuterol Sulfate 3 Ml Neb NEB 3 ml [id number] LIZ Administration Carvedilol 12.5 mg 01/29/20 08:00 02/01/20 07:57 Carvedilol 6.25 Mg Tab PO 12.5 mg BID-WM LIZ Administration Cefdinir 600 mg 01/30/20 09:00 02/01/20 07:58 Cefdinir 300 Mg Cap PO 600 mg DAILY LIZ Administration Clonidine 0.1 mg 01/28/20 22:17 02/01/20 04:46 Clonidine 0.1 Mg Tab PO 0.1 mg Q4H PRN Administration SBP Greater Than 180 Clonidine 0.1 mg 01/29/20 09:00 02/01/20 07:58 Clonidine 0.1 Mg Tab PO 0.1 mg BID LIZ Administration Cyanocobalamin 1,000 mcg 01/29/20 09:00 02/01/20 07:59 Cyanocobalamin (Vitamin B-12) 1,000 Mcg Tab PO 1,000 mcg DAILY LIZ Administration Famotidine 20 mg 01/29/20 09:00 02/01/20 07:58 Famotidine 20 Mg Tab PO 20 mg BID LIZ Administration Folic Acid 1 mg 01/29/20 09:00 02/01/20 07:58 Folic Acid 1 Mg Tab PO 1 mg DAILY LIZ Administration Methylprednisolone Sodium Succinate 80 mg 02/01/20 09:00 02/01/20 07:59 Methylprednisolone Sod Succ/Pf 125 Mg/2 Ml Vial IVP 80 mg DAILY LIZ Administration Multivitamins 1 tab 01/29/20 09:00 02/01/20 07:58 Multivit, Therapeutic 1 Tab PO 1 tab DAILY LIZ Administration Nicotine 14 mg 01/30/20 18:05 01/30/20 18:40 Nicotine 14 Mg Patch TD 14 mg Q24H PRN Administration Smoking craving Polyethylene Glycol 17 gm 01/31/20 09:00 02/01/20 07:59 Polyethylene Glycol 3350 17 Gm Packet PO 17 gm DAILY LIZ Administration Senna/Docusate Sodium 2 tab 01/30/20 21:00 02/01/20 07:58 Senokot S 8.6-50 Mg Tab PO 2 tab BID LIZ Administration Sodium Chloride 10 ml 01/28/20 22:00 01/31/20 20:45 Flush - Normal Saline 10 Ml Syringe IVF 10 ml PRN PRN Administration Saline Flush Thiamine HCl 100 mg 01/29/20 09:00 02/01/20 07:58 Thiamine 100 Mg Tab PO 100 mg DAILY LIZ Administration - Exam General Appearance: NAD Heart: RRR, no gallops Respiratory: no ronchi Gastrointestinal: non-tender, normal bowel sounds Extremities: no cyanosis Neurological: no new deficit Musculoskeletal: normal tone Psychiatric: A&O x 3 Hosp A/P - Plan DVT proph w/SCDs (No Lovenox/heparin due to intracranial bleed) Encephalopathy due to intracranial bleed involving the left thalamus with intraventricular hemorrhage Hypertensive emergency -s/p Cardene drip History of hypertensionnoncompliant with medication Acute hypoxic respiratory failure requiring noninvasive positive pressure ventilation in the emergency room Suspected COPD with COPD exacerbation Tobacco abusecounseled Hypomagnesemia CKD stage II Cannabis abusecounseled Medication noncompliance Swallow dysfunction Plan: Continue physical therapy/Occupational Therapy. Continue modified diet. Continue carvedilol. Increase clonidine to 0.1 mg 3 times daily with holding parameters. Continue neurochecks. Continue antibiotics with steroids for COPD exacerbation. Await inpatient rehab placement
--- NOTE | 2020-02-01 13:45 | PRG ---
DATE OF SERVICE: 02/01/2020 SUBJECTIVE: The patient says he feels 100% better today. He is no longer bronchospastic. His expiratory phase has returned to normal. OBJECTIVE: VITAL SIGNS: Afebrile. Heart rate is in 70s, respiratory rate is 16, oximetry is 89% to 92% on room air, blood pressure 128/69. He is quicker to respond to questions today. LUNGS: Clear. HEART: Regular rhythm. ABDOMEN: Soft. EXTREMITIES: Without edema. DIAGNOSTIC DATA: Chest x-ray is hazy at the right apex. IMPRESSION: 1. Chronic obstructive pulmonary disease exacerbation. 2. Haziness at the right apex that by CT is suggestive of scarring. I would recommend simply a repeat CT of his lungs without contrast in 3 months. 3. Brain hemorrhage followed by Neurosurgery. I would consider switching to p.o. steroids in 24 to 48 hours. Job ID: [id number]
[2020-02-02] MEDS: cloNIDine 0.1 MG TAB PO PRN (00:20)
[2020-02-02] MEDS: Cyanocobalamin (Vitamin B-12) 1,000 MCG TAB PO SCH (08:29)
[2020-02-02] MEDS: Cefdinir 300 MG CAP PO SCH (08:29)
[2020-02-02] MEDS: Multivit, Therapeutic 1 TAB PO SCH (08:29)
[2020-02-02] MEDS: Senokot S 8.6-50 MG TAB PO SCH ×2 (08:29→22:55)
[2020-02-02] MEDS: Famotidine 20 MG TAB PO SCH ×2 (08:29→22:55)
[2020-02-02] MEDS: Thiamine 100 MG TAB PO SCH (08:29)
[2020-02-02] MEDS: Losartan 25 MG TAB PO SCH ×2 (08:30→22:55)
[2020-02-02] MEDS: Amlodipine 10 MG TAB PO SCH (08:30)
[2020-02-02] MEDS: Polyethylene Glycol 3350 17 GM Packet PO SCH (08:31)
[2020-02-02] MEDS: methylPREDNISolone Sod Succ/PF 125 MG/2 ML VIAL IVP SCH (08:31)
[2020-02-02] MEDS: Folic Acid 1 MG TAB PO SCH (08:31)
[2020-02-02] MEDS: Carvedilol 6.25 MG TAB PO SCH ×2 (08:32→18:13)
--- NOTE | 2020-02-02 12:55 | PRG ---
DATE OF SERVICE: 02/02/2020 SUBJECTIVE: The patient says he is doing better. He is examined with his in the room. OBJECTIVE: VITAL SIGNS: He is afebrile, heart rate is 73, respiratory rate is 18, oximetry is 98% on 2 L, and blood pressure is 140/80. LUNGS: Free of wheezes. HEART: Regular rhythm. ABDOMEN: Soft. IMPRESSION AND PLAN: Chronic obstructive pulmonary disease exacerbation is mild and resolved quickly with steroids and nebulizer treatments. His IV Solu-Medrol to be discontinued today. He will be placed on 20 mg a day of prednisone, which can be tapered over two weeks. He walked approximately 170 feet according to the , which is a huge progress. I will continue to follow with the other physicians for at least another day. If he remains stable, we will likely follow from a distance. Job ID: [id number]
--- NOTE | 2020-02-02 13:18 | PDOC.HOSPP ---
- Subjective Encounter Date: 02/02/20 - Objective Vital Signs & Weight: Vital Signs (12 hours) Temp Pulse Resp BP BP Pulse Ox 02/02/20 11:38 140/80 02/02/20 11:09 98.2 F 73 18 174/86 H 98 02/02/20 11:01 75 16 95 02/02/20 07:34 98 02/02/20 07:33 64 16 98 02/02/20 07:31 97.5 F L 64 17 145/79 H 98 02/02/20 04:00 98.3 F 73 16 151/79 H 100 02/02/20 02:47 64 14 99 Weight Admit Weight 140 lb Weight 151 lb 6.4 oz Most Recent Monitor Data Heart Rate from ECG 87 NIBP 128/76 NIBP BP-Mean 93 Respiration from ECG 30 SpO2 99 I&O: 02/01/20 02/02/20 02/03/20 06:59 06:59 06:59 Intake Total 960 980 240 Output Total 901 150 435 Balance 59 830 -195 Result Diagrams: 02/01/20 05:29 02/01/20 05:29 Additional Labs: Accuchecks 02/02/20 02/02/20 02/01/20 12:33 00:59 16:50 POC Glucose 154 H 110 H 156 H Hospitalist ROS - Review of Systems Constitutional: reports: weakness. denies: fever, chills, sweats, malaise, other Eyes: denies: pain, vision change, conjunctivae inflammation, eyelid inflammation, redness, other ENT: denies: ear pain, ear discharge, nose pain, nose discharge, nose congestion, mouth pain, mouth swelling, throat pain, throat swelling, other Respiratory: denies: cough, dry, shortness of breath, hemoptysis, SOB with excertion, pleuritic pain, sputum, wheezing, other Gastrointestinal: denies: nausea, vomiting, abdominal pain, diarrhea, c onstipation, melena, hematochezia, other Genitourinary: denies: dysuria, frequency, incontinence, hematuria, retention, other Musculoskeletal: denies: neck pain, shoulder pain, arm pain, back pain, hand pain, leg pain, foot pain, other Neurological: reports: weakness. denies: numbness, incoordination, change in speech, confusion, seizures, other - Medication Medications: Active Medications Generic Name Dose Route Start Last Admin Trade Name Freq PRN Reason Stop Dose Admin Albuterol/Ipratropium 3 ml 01/31/20 10:30 02/02/20 11:01 Ipratropium/Albuterol Sulfate 3 Ml Neb NEB 3 ml [id number] LIZ Administration Amlodipine Besylate 10 mg 02/02/20 09:00 02/02/20 08:30 Amlodipine 10 Mg Tab PO 10 mg DAILY LIZ Administration Carvedilol 12.5 mg 01/29/20 08:00 02/02/20 08:32 Carvedilol 6.25 Mg Tab PO 12.5 mg BID-WM LIZ Administration Cefdinir 600 mg 01/30/20 09:00 02/02/20 08:29 Cefdinir 300 Mg Cap PO 600 mg DAILY LIZ Administration Cyanocobalamin 1,000 mcg 01/29/20 09:00 02/02/20 08:29 Cyanocobalamin (Vitamin B-12) 1,000 Mcg Tab PO 1,000 mcg DAILY LIZ Administration Famotidine 20 mg 01/29/20 09:00 02/02/20 08:29 Famotidine 20 Mg Tab PO 20 mg BID LIZ Administration Folic Acid 1 mg 01/29/20 09:00 02/02/20 08:31 Folic Acid 1 Mg Tab PO 1 mg DAILY LIZ Administration Losartan Potassium 25 mg 02/02/20 09:00 02/02/20 08:30 Losartan 25 Mg Tab PO 25 mg BID LIZ Administration Multivitamins 1 tab 01/29/20 09:00 02/02/20 08:29 Multivit, Therapeutic 1 Tab PO 1 tab DAILY LIZ Administration Nicotine 14 mg 01/30/20 18:05 01/30/20 18:40 Nicotine 14 Mg Patch TD 14 mg Q24H PRN Administration Smoking craving Polyethylene Glycol 17 gm 01/31/20 09:00 02/02/20 08:31 Polyethylene Glycol 3350 17 Gm Packet PO 17 gm DAILY LIZ Administration Senna/Docusate Sodium 2 tab 01/30/20 21:00 02/02/20 08:29 Senokot S 8.6-50 Mg Tab PO 2 tab BID LIZ Administration Sodium Chloride 10 ml 01/28/20 22:00 02/01/20 20:15 Flush - Normal Saline 10 Ml Syringe IVF 10 ml PRN PRN Administration Saline Flush Thiamine HCl 100 mg 01/29/20 09:00 02/02/20 08:29 Thiamine 100 Mg Tab PO 100 mg DAILY LIZ Administration - Exam General Appearance: NAD, awake alert, ill appearing Eye: PERRL, anicteric sclera ENT: normocephalic atraumatic, moist mucosa Neck: supple, symmetric, no JVD, no thyromegaly Heart: RRR, no murmur, no gallops, no rubs, normal peripheral pulses Respiratory: CTAB, no wheezes, no rales, no ronchi, normal chest expansion Gastrointestinal: soft, non-tender, non-distended, normal bowel sounds Extremities: no cyanosis, no clubbing, no edema Skin: no lesions, no rashes Neurological: cranial nerve grossly intact Neurological - other findings: gait not tested. Musculoskeletal: generalized weakness Psychiatric: normal affect, normal behavior, A&O x 3 Hosp A/P (1) HTN (hypertension) Code(s): I10 - ESSENTIAL (PRIMARY) HYPERTENSION Status: Acute Qualifiers: Hypertension type: essential hypertension Qualified Code(s): I10 - Essential (primary) hypertension Plan: Controlled. However will d/c Clonidine due to rebound HTN, IVH and pt's non compliance hx. Have stared Amlodipine and Losartan. Will cont to adjust BP meds as needed. Cover with IV labetalol. (2) IVH (intraventricular hemorrhage) Code(s): I61.5 - NONTRAUMATIC INTRACEREBRAL HEMORRHAGE, INTRAVENTRICULAR Status: Acute Plan: Stable. No intervention per Neuro[facility]. (3) Encephalopathy Code(s): G93.40 - ENCEPHALOPATHY, UNSPECIFIED Status: Acute Plan: Stable. Pt is AAO x 3. (4) Debility Code(s): R53.81 - OTHER MALAISE Status: Acute Plan: Cont PT. Awaiting DC to Rehab. Pt has no resources. SW and CM working on this. (5) COPD (chronic obstructive pulmonary disease) Status: Acute Plan: Stable. Not in exacerbation. Cont nebs as needed. Pulm is on board. (6) Tobacco abuse Code(s): Z72.0 - TOBACCO USE Status: Acute Plan: Has been counseled. (7) CKD (chronic kidney disease) stage 3, GFR 30-59 ml/min Code(s): N18.30 - CHRONIC KIDNEY DISEASE, STAGE 3 UNSPECIFIED Status: Acute Plan: Stable. Monitor Cr. (8) Cannabis abuse Code(s): F12.10 - CANNABIS ABUSE, UNCOMPLICATED Status: Acute Plan: Has been counseled. (9) Medical non-compliance Code(s): Z91.19 - PATIENT'S NONCOMPLIANCE W OTH MEDICAL TREATMENT AND REGIMEN Status: Acute Plan: Has been counseled. - Plan plan discussed w/ family, PT/OT, renal social worker PPx: SCDs. CODE: FuLL. Dispo: Cont current mgt. Awaiting d/c to Rehab. 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
[2020-02-03] MEDS: Labetalol HCl 100 MG/20 ML VIAL SLOW IVP PRN (02:38)
[2020-02-03] MEDS: Nicotine 14 MG PATCH TD PRN (02:39)
[2020-02-03 03:04] LABS: #Basophils 0.1 thou/uL (0.0-0.2); #Lymphocytes 2.1 thou/uL (1.20-3.40); #Monocytes 1.2 thou/uL (0.11-0.59); #Neutrophils 9.1 thou/uL (1.40-6.50); %Basophils 0.6 % (0.0-1.0); %Eosinophils 0.1 % (0.0-10.0); %Lymphocytes 17.1 % (21.0-51.0); %Monocytes 9.7 % (0.0-10.0); %Neutrophils 72.6 % (42.0-75.0); Hemoglobin 14.3 g/dL (14.0-18.0); Mean Corpuscular HGB CONC 32.4 g/dL (32.0-36.0); Mean Corpuscular Hemoglobin 31.1 pg (27.0-31.0); Mean Platelet Volume 7.4 fL (7.4-10.4); Platelet Count 267 thou/uL (130-400); RBC Distribution Width 11.5 % (11.5-14.5); Red Blood Cell (RBC) Count 4.59 mill/uL (4.70-6.10); White Blood Cell (WBC) Count 12.5 thou/uL (4.8-10.8)
[2020-02-03 03:28] LABS: Anion Gap 14 mmol/L (10-20); BUN (Urea Nitrogen) 19 mg/dL (8.4-25.7); Calc. Creatinine Clearance 91 mL/min (70-130); Carbon Dioxide 32 mmol/L (22-29); Chloride 101 mmol/L (98-107); Glucose 113 mg/dL (70-105); Potassium 3.7 mmol/L (3.5-5.1); Sodium 143 mmol/L (136-145)
[2020-02-03] MEDS: hydrALAZINE 20 MG/ML VIAL SLOW IVP PRN (04:41)
[2020-02-03] MEDS: Senokot S 8.6-50 MG TAB PO SCH ×2 (08:33→20:18)
[2020-02-03] MEDS: Polyethylene Glycol 3350 17 GM Packet PO SCH (08:34)
[2020-02-03] MEDS: Losartan 25 MG TAB PO SCH ×2 (08:35→20:18)
[2020-02-03] MEDS: Carvedilol 6.25 MG TAB PO SCH ×2 (08:37→16:33)
[2020-02-03] MEDS: Amlodipine 10 MG TAB PO SCH (08:37)
[2020-02-03] MEDS: predniSONE 20 MG TAB PO SCH (08:38)
[2020-02-03] MEDS: Folic Acid 1 MG TAB PO SCH (08:38)
[2020-02-03] MEDS: Cefdinir 300 MG CAP PO SCH (08:39)
[2020-02-03] MEDS: Multivit, Therapeutic 1 TAB PO SCH (08:40)
[2020-02-03] MEDS: Famotidine 20 MG TAB PO SCH ×2 (08:40→20:18)
[2020-02-03] MEDS: Thiamine 100 MG TAB PO SCH (08:41)
[2020-02-03] MEDS: Cyanocobalamin (Vitamin B-12) 1,000 MCG TAB PO SCH (08:41)
--- NOTE | 2020-02-03 11:36 | PRG ---
DATE OF SERVICE: 02/03/2020 SUBJECTIVE: The patient was seen and evaluated at bedside. The patient is resting well, afebrile, not in short of breath. No complaints of chest pain. OBJECTIVE: VITAL SIGNS: Has temperature of 96.9 degrees Fahrenheit, heart rate of 73 per minute, respiratory rate of 20 per minute, blood pressure of 141/78 mmHg. Has an airway which is clear. HEENT: Atraumatic, normocephalic. NECK: Supple. No bruit. No lymphadenopathy. CVS: S1, S2. Normal sinus rhythm. CHEST: Bilateral air entry present. No rhonchi. No wheeze. ABDOMEN: Soft, nontender. Bowel sounds are present. No tenderness noted. EXTREMITIES: No cyanosis, no lymphadenopathy, no edema. NEUROLOGIC: The patient is alert, oriented, not in acute distress. No focal motor or sensory deficits noted. HEME: No ecchymosis or petechiae. PSYCH: No depression. DIAGNOSTICS: WBC is 12.5, hemoglobin 14.3, hematocrit 44.1, platelets are 267. SARS-CoV-2 evaluation not detected. Marijuana positive in the urine drug screen. ASSESSMENT: 1. Benign essential hypertension, well controlled at this point of time. 2. Intraventricular hemorrhage. Conservative management per [facility]. 3. Acute encephalopathy, resolved. 4. Physical debility, requiring rehab placement, currently awaiting Case Management clearance. 5. Chronic obstructive pulmonary disease. 6. Tobacco abuse. 7. Chronic kidney disease stage 3. 8. Marijuana abuse. 9. History of extensive medical noncompliance. PLAN: Discussed in detail of the diagnosis, treatment, and followup with the patient as well as family. Continue PT, OT, and currently awaiting placement services for rehab. At this point of time, the patient is unsafe to go home. Job ID: [id number]
--- NOTE | 2020-02-03 16:25 | PRG ---
DATE OF SERVICE: 02/03/2020 The patient is doing well. wants to see if we can get him out of bed more. He walked to the bathroom with assistance. I feel he needs to be out of bed for all his meals. He is no longer wheezing. He is continuing with physical therapy. Since he has no healthcare coverage, he will need to stay until he is safely ambulatory and able to get out of bed in a chair with minimal assistance. There are no acute pulmonary issues. Job ID: [id number]
[2020-02-04] MEDS: Labetalol HCl 100 MG/20 ML VIAL SLOW IVP PRN (06:23)
[2020-02-04 07:12] LABS: Magnesium 1.9 mg/dL (1.6-2.6); Potassium 3.6 mmol/L (3.5-5.1)
[2020-02-04] MEDS: hydrALAZINE 20 MG/ML VIAL SLOW IVP PRN (07:58)
[2020-02-04] MEDS: Cyanocobalamin (Vitamin B-12) 1,000 MCG TAB PO SCH (09:32)
[2020-02-04] MEDS: Polyethylene Glycol 3350 17 GM Packet PO SCH (09:32)
[2020-02-04] MEDS: Losartan 25 MG TAB PO SCH ×2 (09:32→21:04)
[2020-02-04] MEDS: Thiamine 100 MG TAB PO SCH (09:32)
[2020-02-04] MEDS: Cefdinir 300 MG CAP PO SCH (09:32)
[2020-02-04] MEDS: Folic Acid 1 MG TAB PO SCH (09:32)
[2020-02-04] MEDS: predniSONE 20 MG TAB PO SCH (09:32)
[2020-02-04] MEDS: Famotidine 20 MG TAB PO SCH ×2 (09:32→20:57)
[2020-02-04] MEDS: Senokot S 8.6-50 MG TAB PO SCH ×2 (09:32→21:03)
[2020-02-04] MEDS: Multivit, Therapeutic 1 TAB PO SCH (09:32)
[2020-02-04] MEDS: Carvedilol 6.25 MG TAB PO SCH ×2 (09:33→17:57)
[2020-02-04] MEDS: Amlodipine 10 MG TAB PO SCH (09:33)
--- NOTE | 2020-02-04 11:11 | PRG ---
DATE OF SERVICE: 02/04/2020 TIME OF SERVICE: 9:30 a.m. CONSULTATION ON THE CASE: Dr. Conner Cooley of Pulmonary/Critical Care. SUBJECTIVE: The patient was seen and evaluated at bedside. The patient has been encouraged to ambulate as tolerated for minimal needs for now awaiting rehab placement. OBJECTIVE: VITAL SIGNS: Has a temperature of 98.2 degrees Fahrenheit, blood pressure 158/88 mmHg, saturation 99%. Has an airway which is clear. HEENT: Atraumatic, normocephalic. NECK: Supple. No bruit. No lymphadenopathy. CV: S1, S2. No abnormal rhythms or murmurs. CHEST: Bilateral air entry present. Basilar crackles noted. ABDOMEN: Soft, nontender. Bowel sounds are present. EXTREMITIES: No cyanosis, no edema. HEME: No ecchymosis or petechiae. PSYCH: No depression. DIAGNOSTICS: None today. ASSESSMENT: 1. Status post intraventricular hemorrhage, conservative management per [facility]. 2. Benign essential hypertension, uncontrolled. The patient currently on Coreg and losartan. 3. The patient does not have any evidence of congestive heart failure. Ejection fraction is 50% to 55% without any wall motion abnormalities. 4. Chronic obstructive pulmonary disease. 5. Tobacco abuse. 6. Chronic kidney disease, stage 3. 7. History of marijuana abuse. 8. History of extensive medical noncompliance. PLAN: Discussed in detail of the diagnosis, treatment, and followup with the patient as well as the patient's care team. We are awaiting rehab placement as the patient is significantly disabled with physical debility secondary to his medical condition. Discharge planning will depend on further hospital course. Job ID: [id number]
[2020-02-04 14:10] VITALS: BMI 21.0
--- NOTE | 2020-02-04 15:42 | PRG ---
DATE OF SERVICE: 02/04/2020 SUBJECTIVE: Mau Plummer continues to be stable from a pulmonary standpoint. Neurologically, his latency response has improved a little bit each day. OBJECTIVE: VITAL SIGNS: Afebrile, heart rate is in 60s, respiratory rate is in teens, oximetry is 98% on 2.5 L of oxygen, blood pressure 125/72. LUNGS: Clear. HEART: Regular rhythm. ABDOMEN: Soft. IMPRESSION: Chronic obstructive pulmonary disease, improved. His prednisone could be tapered to 10 mg at discharge. He would benefit from having a nebulizer at home if he does not already have one. We will sign off. Job ID: [id number]
[2020-02-04] MEDS ORDERED: Acetaminophen 325 MG TAB PO PRN (17:20)
[2020-02-04] MEDS ORDERED: Milk Of Magnesia 30 ML UDCUP PO PRN (17:21)
[2020-02-04] MEDS ORDERED: Ondansetron PF 4 MG/2 ML Vial IVP PRN (17:21)
[2020-02-04] MEDS ORDERED: Mag-Al 1200 mg/1200 mg/30 ML UDCUP PO PRN (17:21)
[2020-02-04] MEDS ORDERED: Bisacodyl 10 MG SUPP PR PRN (17:21)
[2020-02-04] MEDS ORDERED: Lorazepam 1 MG TAB PO PRN (17:22)
[2020-02-04] MEDS ORDERED: Ondansetron ODT 4 MG TAB PO PRN (17:22)
[2020-02-04] MEDS ORDERED: Nicotine 14 MG PATCH TD PRN (17:24)
[2020-02-04] MEDS ORDERED: Labetalol HCl 100 MG/20 ML VIAL SLOW IVP PRN (17:24)
[2020-02-04] MEDS ORDERED: hydrALAZINE 20 MG/ML VIAL SLOW IVP PRN (17:25)
[2020-02-04] MEDS ORDERED: Carvedilol 6.25 MG TAB PO SCH (17:45)
[2020-02-05] MEDS: Polyethylene Glycol 3350 17 GM Packet PO SCH (08:53)
[2020-02-05] MEDS: Famotidine 20 MG TAB PO SCH ×2 (08:53→21:02)
[2020-02-05] MEDS: Senokot S 8.6-50 MG TAB PO SCH ×2 (08:53→21:02)
[2020-02-05] MEDS: Folic Acid 1 MG TAB PO SCH (08:54)
[2020-02-05] MEDS: Thiamine 100 MG TAB PO SCH (08:54)
[2020-02-05] MEDS: Cyanocobalamin (Vitamin B-12) 1,000 MCG TAB PO SCH (08:54)
[2020-02-05] MEDS: Losartan 25 MG TAB PO SCH ×2 (08:54→21:02)
[2020-02-05] MEDS: Amlodipine 10 MG TAB PO SCH (08:55)
[2020-02-05] MEDS: Multivit, Therapeutic 1 TAB PO SCH (08:55)
[2020-02-05] MEDS: Carvedilol 6.25 MG TAB PO SCH ×2 (08:55→16:54)
[2020-02-05] MEDS: predniSONE 20 MG TAB PO SCH (08:55)
[2020-02-05] MEDS ORDERED: Cefdinir 300 MG CAP PO SCH (09:00)
--- NOTE | 2020-02-05 10:52 | PRG ---
DATE OF SERVICE: 02/05/2020 TIME OF SERVICE: 8 a.m. CONSULTATIONS ON THE CASE: Conner Cooley MD, Pulmonary Critical Care. SUBJECTIVE: The patient seen and evaluated at bedside. The patient is alert and oriented, though feels weak with significant physical debility. OBJECTIVE: VITAL SIGNS: Temperature of 97.7 degrees Fahrenheit, heart rate of 71 per minute, respiratory rate of 20 per minute, saturation of 98% on 2 L of oxygen, has a blood pressure of 119/73 mmHg. HEENT: Has an airway which is clear. Atraumatic, normocephalic. NECK: Supple. No JVD. CVS: S1, S2. No abnormal rhythms or murmurs. CHEST: Bilateral air entry present with basal creps. ABDOMEN: Soft, nontender. Bowel sounds are present. EXTREMITIES: No cyanosis. NEUROLOGIC: The patient is alert, oriented. No new motor deficits noted. HEME: No ecchymosis or petechiae. PSYCH: No depression. DIAGNOSTICS: None. ASSESSMENT: 1. Status post intraventricular hemorrhage. Conservative management per [facility]. 2. Benign essential hypertension, controlled well with Coreg as well as losartan. 3. Congestive heart failure ruled out. The patient's ejection fraction is 55 to 50%. 4. Chronic obstructive pulmonary disease. The patient to taper off on steroids. 5. Tobacco abuse. 6. Chronic kidney disease stage 3. 7. History of marijuana abuse. 8. History of extensive medical noncompliance. PLAN: Discussed in detail of the diagnosis, treatment, and followup with the patient's today. There was discussion in regard to discharging the patient home versus rehab as the patient has significant physical debility with recent history of intracranial bleed. The patient is high risk for fall, and I have advised about transitioning the patient to snf facility or inpatient rehab per plan and recommendations. I reviewed the patient's risk factors with the patient's who agreed to the current management plan. We will discontinue all antibiotics today. Taper the patient's steroids. Job ID: [id number] MTDD
[2020-02-06] MEDS: Amlodipine 10 MG TAB PO SCH (08:17)
[2020-02-06] MEDS: Senokot S 8.6-50 MG TAB PO SCH ×2 (08:17→20:16)
[2020-02-06] MEDS: Folic Acid 1 MG TAB PO SCH (08:17)
[2020-02-06] MEDS: Famotidine 20 MG TAB PO SCH ×2 (08:17→20:16)
[2020-02-06] MEDS: Polyethylene Glycol 3350 17 GM Packet PO SCH (08:17)
[2020-02-06] MEDS: Losartan 25 MG TAB PO SCH ×2 (08:18→20:16)
[2020-02-06] MEDS: Carvedilol 6.25 MG TAB PO SCH ×2 (08:18→17:45)
[2020-02-06] MEDS: Cyanocobalamin (Vitamin B-12) 1,000 MCG TAB PO SCH (08:18)
[2020-02-06] MEDS: Multivit, Therapeutic 1 TAB PO SCH (08:18)
[2020-02-06] MEDS: predniSONE 20 MG TAB PO SCH (08:18)
[2020-02-06] MEDS: Thiamine 100 MG TAB PO SCH (08:18)
--- NOTE | 2020-02-06 13:46 | PRG ---
DATE OF SERVICE: 02/06/2020 TIME OF SERVICE: 12:00 p.m. ALLERGIES: NO KNOWN DRUG ALLERGIES. SUBJECTIVE: The patient seen and evaluated at bedside. The patient appears lethargic. Continues to work with physical therapy and occupational therapy. No evidence of altered mentation noted. OBJECTIVE: VITAL SIGNS: Temperature of 97.3 degrees Fahrenheit, heart rate of 80 per minute, respiratory rate of 16 per minute, blood pressure of 129/70 mmHg. He has an airway, which is clear. HEENT: Atraumatic, normocephalic. NECK: Supple. No bruit. No lymphadenopathy. CV: S1 and S2. No abnormal rhythms or murmurs. CHEST: Bilateral air entry present. No rhonchi. No wheeze. ABDOMEN: Soft, nontender. Bowel sounds are present. No organomegaly. EXTREMITIES: No cyanosis, no edema. NEUROLOGIC: The patient is alert, awake, oriented. No motor deficits noted. HEME: No ecchymosis or petechiae. PSYCH: No depression. DIAGNOSTICS: None. MEDICATIONS: 1. Zofran 4 mg p.o. q.6. 2. Prednisone 20 mg daily. 3. Losartan 25 mg b.i.d. 4. Nicotine patches q.24. 5. Lorazepam 1 mg q.4 p.r.n. 6. DuoNeb nebulizations q.4 p.r.n. 7. Coreg 12.5 mg p.o. b.i.d. 8. Labetalol 10 mg q.4 p.r.n. 9. Norvasc 10 mg daily. 10. Hydralazine 10 mg q.4 p.r.n. 11. Multivitamins daily. 12. Folic acid 1 mg daily. 13. Thiamine 100 mg daily. ASSESSMENT: 1. Status post intraventricular hemorrhage. Conservative medical management per [facility]. 2. Benign essential hypertension. 3. Congestive heart failure ruled out. Ejection fraction 50% to 55%. 4. Chronic obstructive pulmonary disease, stable. 5. Tobacco abuse. 6. Chronic kidney disease, stage 3. 7. Marijuana drug abuse. 8. Extensive medical noncompliance. PLAN: Discussed in detail of the diagnosis, treatment, and followup with the patient as well as patient's family. At this point of time, the patient has significant physical debility, unfortunately has been denied rehab placement because of insurance issues. We have advised the patient for safety discharge planning at this point of time to continue PT, OT, and once the patient reaches to a level where he can be managed at home with home PT, OT, can be discharged. I have reviewed this with Case Management in regard to discharge planning as well as the patient's who agreed with the current management plan. Job ID: [id number]
[2020-02-07] MEDS: Polyethylene Glycol 3350 17 GM Packet PO SCH (08:40)
[2020-02-07] MEDS: Amlodipine 10 MG TAB PO SCH (08:41)
[2020-02-07] MEDS: predniSONE 20 MG TAB PO SCH (08:41)
[2020-02-07] MEDS: Carvedilol 6.25 MG TAB PO SCH ×2 (08:42→16:10)
[2020-02-07] MEDS: Thiamine 100 MG TAB PO SCH (08:43)
[2020-02-07] MEDS: Cyanocobalamin (Vitamin B-12) 1,000 MCG TAB PO SCH (08:43)
[2020-02-07] MEDS: Multivit, Therapeutic 1 TAB PO SCH (08:44)
[2020-02-07] MEDS: Losartan 25 MG TAB PO SCH ×2 (08:44→21:01)
[2020-02-07] MEDS: Famotidine 20 MG TAB PO SCH ×2 (08:45→21:01)
[2020-02-07] MEDS: Folic Acid 1 MG TAB PO SCH (08:45)
[2020-02-07] MEDS: Senokot S 8.6-50 MG TAB PO SCH ×2 (08:45→21:01)
--- NOTE | 2020-02-07 09:44 | EKG ---
Test Reason : SOB Blood Pressure : / mmHG Vent. Rate : 109 BPM Atrial Rate : 109 BPM P-R Int : 118 ms QRS Dur : 082 ms QT Int : 334 ms P-R-T Axes : 069 078 079 degrees QTc Int : 449 ms Sinus tachycardia Confirmed by JULIO MCKEON, BRAYAN Alexis ([id number]), editor house organ MARQUISE MUHAMMAD ([id number]) on 02/07/2020 9:44:43 AM Referred By: Confirmed By:BRAYAN KIM MD
--- NOTE | 2020-02-07 11:05 | PRG ---
DATE OF SERVICE: 02/07/2020 TIME OF SERVICE: 8:45 a.m. ALLERGIES: NO KNOWN DRUG ALLERGIES. SUBJECTIVE: The patient was seen and evaluated at bedside. The patient is currently resting well, working with physical therapy, usually walks with his walker from bed to the bathroom. OBJECTIVE: VITAL SIGNS: Not in acute distress. Has a temperature 97.9 degrees Fahrenheit, heart rate of 75 per minute, respiratory rate of 18 per minute, saturation of 97% on room air, blood pressure of 169/95 mmHg. Has an airway which is clear. HEENT: Atraumatic, normocephalic. NECK: Supple. No bruit. No lymphadenopathy. CV: S1, S2. No abnormal rhythms. CHEST: Bilateral air entry present. No rhonchi. No wheeze. ABDOMEN: Soft, nontender. Bowel sounds are present. No organomegaly. EXTREMITIES: No cyanosis, no edema. NEUROLOGIC: The patient is alert and oriented x3. No focal motor or sensory deficits noted. HEME: No ecchymosis or petechiae. PSYCH: No depression or anxiety. DIAGNOSTICS: None. ASSESSMENT: 1. Status post intraventricular hemorrhage, spontaneous in nature. Advised for conservative management. 2. Benign essential hypertension. 3. Congestive heart failure, ejection fraction of 50% to 55%, which has been ruled out. 4. Chronic obstructive pulmonary disease, currently on tapering course of steroids. 5. Tobacco abuse. 6. Chronic kidney disease, stage 3. 7. Marijuana drug abuse. 8. Extensive history of medical noncompliance. PLAN: Discussed in detail of the diagnosis, treatment, and followup with the patient. I have advised the patient about tapering course of steroids. Continue to work with PT, OT, eventual transition to home on 02/10/2020 with home health and PT and OT. I was notified both the patient's as well as Case Management in regard to the same. Job ID: [id number]
[2020-02-08] MEDS: Senokot S 8.6-50 MG TAB PO SCH ×2 (07:18→21:41)
[2020-02-08] MEDS: Polyethylene Glycol 3350 17 GM Packet PO SCH (07:18)
[2020-02-08] MEDS: Amlodipine 10 MG TAB PO SCH (08:26)
[2020-02-08] MEDS: Losartan 25 MG TAB PO SCH ×2 (08:26→21:41)
[2020-02-08] MEDS: Carvedilol 6.25 MG TAB PO SCH ×2 (08:27→16:23)
[2020-02-08] MEDS: predniSONE 20 MG TAB PO SCH (08:27)
[2020-02-08] MEDS: Thiamine 100 MG TAB PO SCH (08:28)
[2020-02-08] MEDS: Cyanocobalamin (Vitamin B-12) 1,000 MCG TAB PO SCH (08:28)
[2020-02-08] MEDS: Folic Acid 1 MG TAB PO SCH (08:28)
[2020-02-08] MEDS: Famotidine 20 MG TAB PO SCH ×2 (08:29→21:41)
[2020-02-08] MEDS: Multivit, Therapeutic 1 TAB PO SCH (08:29)
--- NOTE | 2020-02-08 11:39 | PDOC.HOSPP ---
- Subjective Encounter Date: 02/08/20 Encounter Time: 07:00 Subjective: Patient seen and examined bedside today, no overnight event, no new complaint, - Objective Vital Signs & Weight: Vital Signs (12 hours) Temp Pulse Resp BP BP BP Pulse Ox 02/08/20 08:24 149/89 H 96 02/08/20 07:34 98.2 F 74 16 149/89 H 96 02/08/20 06:31 94 L 02/08/20 04:37 94 L 02/08/20 04:00 97.4 F L 74 18 151/77 H 151/77 H 94 L 02/08/20 00:00 98.4 F 78 16 129/74 129/74 95 Weight Admit Weight 140 lb Weight 141 lb 8 oz Most Recent Monitor Data Heart Rate from ECG 87 NIBP 128/76 NIBP BP-Mean 93 Respiration from ECG 30 SpO2 99 I&O: 02/07/20 02/08/20 02/09/20 06:59 06:59 06:59 Intake Total 550 1240 Output Total 575 280 Balance -25 960 Result Diagrams: 02/03/20 02:58 02/04/20 06:36 Hospitalist ROS - Review of Systems ENT: denies: ear pain, ear discharge, nose pain, nose discharge, nose congestion, mouth pain, mouth swelling, throat pain, throat swelling, other Respiratory: denies: cough, dry, shortness of breath, hemoptysis, SOB with excertion, pleuritic pain, sputum, wheezing, other Cardiovascular: denies: chest pain, palpitations, orthopnea, paroxysmal noc. dyspnea, edema, light headedness, other Gastrointestinal: denies: nausea, vomiting, abdominal pain, diarrhea, constipation, melena, hematochezia, other Genitourinary: denies: dysuria, frequency, incontinence, hematuria, retention, other - Medication Medications: Active Medications Generic Name Dose Route Start Last Admin Trade Name Freq PRN Reason Stop Dose Admin Albuterol/Ipratropium 3 ml 02/04/20 18:30 02/08/20 10:26 Ipratropium/Albuterol Sulfate 3 Ml Neb NEB Not Given [id number] Amlodipine Besylate 10 mg 02/05/20 09:00 02/08/20 08:26 Amlodipine 10 Mg Tab PO 10 mg DAILY LIZ Administration Carvedilol 12.5 mg 02/05/20 08:00 02/08/20 08:27 Carvedilol 6.25 Mg Tab PO 12.5 mg BID-WM LIZ Administration Cyanocobalamin 1,000 mcg 02/05/20 09:00 02/08/20 08:28 Cyanocobalamin (Vitamin B-12) 1,000 Mcg Tab PO 1,000 mcg DAILY LIZ Administration Famotidine 20 mg 02/04/20 21:00 02/08/20 08:29 Famotidine 20 Mg Tab PO 20 mg BID LIZ Administration Folic Acid 1 mg 02/05/20 09:00 02/08/20 08:28 Folic Acid 1 Mg Tab PO 1 mg DAILY LIZ Administration Losartan Potassium 25 mg 02/04/20 21:00 02/08/20 08:26 Losartan 25 Mg Tab PO 25 mg BID LIZ Administration Multivitamins 1 tab 02/05/20 09:00 02/08/20 08:29 Multivit, Therapeutic 1 Tab PO 1 tab DAILY LIZ Administration Polyethylene Glycol 17 gm 02/05/20 09:00 02/08/20 07:18 Polyethylene Glycol 3350 17 Gm Packet PO Not Given DAILY LIZ Prednisone 10 mg 02/08/20 08:00 02/08/20 08:27 Prednisone 20 Mg Tab PO 10 mg QAM-WM LIZ Administration Senna/Docusate Sodium 2 tab 02/04/20 21:00 02/08/20 07:18 Senokot S 8.6-50 Mg Tab PO Not Given BID LIZ Sodium Chloride 10 ml 02/04/20 17:20 02/04/20 20:57 Flush - Normal Saline 10 Ml Syringe IVF 10 ml PRN PRN Administration Saline Flush Thiamine HCl 100 mg 02/05/20 09:00 02/08/20 08:28 Thiamine 100 Mg Tab PO 100 mg DAILY LIZ Administration - Exam General Appearance: NAD, awake alert Eye: PERRL, anicteric sclera ENT: normocephalic atraumatic, no oropharyngeal lesions Neck: supple, symmetric, no JVD Heart: RRR, no murmur, no gallops Respiratory: no wheezes, no rales, no ronchi Gastrointestinal: soft, non-tender, non-distended, normal bowel sounds Extremities: no cyanosis, no clubbing, no edema Skin: normal turgor, no lesions Neurological - other findings: He moves all 4 limbs Musculoskeletal: normal tone, normal strength Psychiatric: normal affect, normal behavior Hosp A/P (1) CKD (chronic kidney disease) stage 3, GFR 30-59 ml/min Code(s): N18.30 - CHRONIC KIDNEY DISEASE, STAGE 3 UNSPECIFIED Status: Acute (2) COPD (chronic obstructive pulmonary disease) Status: Acute (3) Cannabis abuse Code(s): F12.10 - CANNABIS ABUSE, UNCOMPLICATED Status: Acute (4) Debility Code(s): R53.81 - OTHER MALAISE Status: Acute (5) Encephalopathy Code(s): G93.40 - ENCEPHALOPATHY, UNSPECIFIED Status: Acute (6) HTN (hypertension) Code(s): I10 - ESSENTIAL (PRIMARY) HYPERTENSION Status: Acute Qualifiers: Hypertension type: essential hypertension Qualified Code(s): I10 - Essential (primary) hypertension (7) IVH (intraventricular hemorrhage) Code(s): I61.5 - NONTRAUMATIC INTRACEREBRAL HEMORRHAGE, INTRAVENTRICULAR Status: Acute (8) Medical non-compliance Code(s): Z91.19 - PATIENT'S NONCOMPLIANCE W OTH MEDICAL TREATMENT AND REGIMEN Status: Acute (9) Tobacco abuse Code(s): Z72.0 - TOBACCO USE Status: Acute - Plan old records reviewed/req, plan discussed w/ family, PT/OT, child welfare social worker Plan of care discussed with the patient and his , Patient and patient's prefers him to go home tomorrow with home with home health Medications reviewed and continue provide symptomatic and supportive care
[2020-02-09 07:40] VITALS: TEMP 97.7
[2020-02-09] MEDS: Polyethylene Glycol 3350 17 GM Packet PO SCH (09:22)
[2020-02-09] MEDS: Senokot S 8.6-50 MG TAB PO SCH (09:22)
[2020-02-09] MEDS: Carvedilol 6.25 MG TAB PO SCH (09:24)
[2020-02-09] MEDS: predniSONE 20 MG TAB PO SCH (09:24)
[2020-02-09] MEDS: Famotidine 20 MG TAB PO SCH (09:25)
[2020-02-09] MEDS: Cyanocobalamin (Vitamin B-12) 1,000 MCG TAB PO SCH (09:25)
[2020-02-09] MEDS: Folic Acid 1 MG TAB PO SCH (09:25)
[2020-02-09] MEDS: Thiamine 100 MG TAB PO SCH (09:25)
[2020-02-09] MEDS: Losartan 25 MG TAB PO SCH (09:25)
[2020-02-09] MEDS: Amlodipine 10 MG TAB PO SCH (09:25)
[2020-02-09] MEDS: Multivit, Therapeutic 1 TAB PO SCH (09:25)
[2020-02-09 10:58] VITALS: BP 152/89
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
== END 2020-02-09 11:32 | disposition home health service (06) | DRG 64 ==
LOC: ERS 16:28 → CCU 18:28 → 2SE 01-30 10:25 → UNDODISIN 02-04 15:56
PROVIDERS: ADMIT Internal Medicine; ATTEND Internal Medicine
DX: I61.5 Nontraumatic intracerebral hemorrhage, intraventricular (principal); J96.01 Acute respiratory failure with hypoxia; I16.1 Hypertensive emergency; J44.1 Chronic obstructive pulmonary disease with (acute) exacerbation; G93.49 Other encephalopathy; Z20.828 Contact with and (suspected) exposure to other viral communicable diseases; F10.20 Alcohol dependence, uncomplicated; I12.9 Hypertensive chronic kidney disease with stage 1 through stage 4 chronic kidney disease, or unspecified chronic kidney disease; F17.210 Nicotine dependence, cigarettes, uncomplicated; R13.10 Dysphagia, unspecified; R53.81 Other malaise; F12.10 Cannabis abuse, uncomplicated; N18.30 Chronic kidney disease, stage 3 unspecified; E83.42 Hypomagnesemia; Z91.14 Patient's other noncompliance with medication regimen; Z71.6 Tobacco abuse counseling
CPT/HCPCS: 36415; 36416; 36600; 70450; 71045; 71260; 74177; 80048; 80053; 80061; 80306; 80307; 81003; 81015; 82140; 82805; 83036; 83605; 83735; 84132; 84484; 85025; 85610; 85730; 87040; 90471; 90662; 90732; 93005; 93306; 94640; 94760; 96365; 96366; 96368; G0008; G0009; J0360; J0456; J0696; J2930; J3475; J3490; J7050; J7512; J7620; Q9967; S0028; U0002

== ENCOUNTER 2020-02-23 21:53 | Inpatient (IN) | payer SELFPAY ==
[2020-02-23] MEDS ORDERED: Acetaminophen 500 MG TAB ONE (22:40)
[2020-02-23 22:43] LABS: #Basophils 0.1 thou/uL (0.0-0.2); #Eosinphils 0.5 thou/uL (0.0-0.7); #Lymphocytes 1.5 thou/uL (1.20-3.40); #Monocytes 1.1 thou/uL (0.11-0.59); #Neutrophils 8.2 thou/uL (1.40-6.50); %Basophils 0.7 % (0.0-1.0); %Eosinophils 4.2 % (0.0-10.0); %Lymphocytes 13.3 % (21.0-51.0); %Monocytes 9.3 % (0.0-10.0); %Neutrophils 72.5 % (42.0-75.0); Hemoglobin 14.2 g/dL (14.0-18.0); Mean Corpuscular HGB CONC 33.2 g/dL (32.0-36.0); Mean Corpuscular Hemoglobin 31.6 pg (27.0-31.0); Mean Corpuscular Volume 95.3 fL (78.0-98.0); Platelet Count 245 thou/uL (130-400); RBC Distribution Width 11.3 % (11.5-14.5); White Blood Cell (WBC) Count 11.3 thou/uL (4.8-10.8)
--- NOTE | 2020-02-23 22:55 | RAD ---
EXAM: Single view of the chest HISTORY: Cough and difficulty breathing. COMPARISON: 02/01/2020 FINDINGS: Single view of the chest shows a normal sized cardiomediastinal silhouette. There is no leanna dence of consolidation, mass, or pleural effusion. No acute osseous abnormality. IMPRESSION: No evidence of acute cardiopulmonary disease
[2020-02-23 23:03] LABS: AST (SGOT) 18 U/L (5-34); Albumin 4.2 g/dL (3.5-5.0); Alkaline Phosphatase 87 U/L (40-110); Anion Gap 14 mmol/L (10-20); BUN (Urea Nitrogen) 18 mg/dL (8.4-25.7); Bilirubin, Total 0.5 mg/dL (0.2-1.2); Calc. Creatinine Clearance 0 mL/min (70-130); Calcium 9.1 mg/dL (7.8-10.44); Carbon Dioxide 31 mmol/L (22-29); Chloride 102 mmol/L (98-107); Glucose 120 mg/dL (70-105); Potassium 4.5 mmol/L (3.5-5.1); Protein, Total 7.2 g/dL (6.0-8.3); Sodium 142 mmol/L (136-145)
[2020-02-23 23:04] LABS: ALT (SGPT) 28 U/L (8-55)
[2020-02-23] MEDS ORDERED: Cefepime 2 GM VIAL ONE (23:08)
[2020-02-23] MEDS ORDERED: Albuterol Sulfate 2.5 mg/3 ml Neb ONE (23:35)
[2020-02-23] MEDS ORDERED: Vancomycin 1 GM/200 ML BAG ONE (23:54)
--- NOTE | 2020-02-23 23:56 | CT ---
EXAM: CTA of the chest HISTORY: Chest pain and difficulty breathing COMPARISON: 01/28/2020 TECHNIQUE: Multiple contiguous axial images were obtained a CTA of the chest with contrast per pulmon hayden embolism protocol. 3-D oblique MIP reformats and direct coronal reformats were performed. FINDINGS: HEART: Normal in size without focal cardiac abnormality. Calcifications are seen in the coronary tosha valentin. PULMONARY ARTERIES: Normal in caliber without filling defects to suggest pulmonary emboli. MEDIASTINUM: No hilar or mediastinal lymphadenopathy. There are calcified right hilar and mediastinal lymph nodes. LUNGS: Emphysematous changes are seen in the lungs. Chronic scarring and increased interstitial disea se is seen in the right lung apex. This is associated with traction bronchiectasis. There are scattered calcified granulomas in the right lung. PLEURAL SPACE: No pleural effusion or pneumothorax. CHEST WALL SOFT TISSUES: Unremarkable VISUALIZED OSSEOUS STRUCTURES: Degenerative changes in the spine. VISUALIZED SUBDIAPHRAGMATIC STRUCTURES: Unremarkable IMPRESSION: No evidence of pulmonary thromboembolism
[2020-02-24] MEDS ORDERED: diphenhydrAMINE 50 MG/ML VIAL ONE (00:16)
[2020-02-24] MEDS ORDERED: methylPREDNISolone Sod Succ/PF 125 MG/2 ML VIAL ONE (00:16)
[2020-02-24] MEDS ORDERED: Famotidine/PF 20 mg/2ml Vial ONE (00:54)
[2020-02-24 01:47] LABS: SARS-CoV-2 NAA Rapid Test Not Detected (NotDetected)
[2020-02-24 02:17] LABS: Base Excess (BEa) 1.7 mEq/L (-2.0 to +3.0); Calcium, Ionized (arterial) 1.19 mmol/L (1.12-1.30); Carboxyhemoglobin (COHb) 0.7 gm% (0.0-3.0); O2 Tension (PaO2), arterial 95.6 mmHg (80.0-100.0); Potassium - ABG Lab 4.43 mmol/L (3.70-5.30); pH, Arterial 7.36 (7.35-7.45)
--- NOTE | 2020-02-24 02:19 | PDOC.HHP ---
Hospitalist HPI - History of Present Illness Shortness of breath History of Present Illness: This is a 59-year-old male patient with a recent history of hemorrhagic stroke, COPD who presents with gradually worsening shortness of breath for the past week. Of note patient was admitted for hemorrhagic stroke and discharged on 01/28/2020. He also had severe COPD and was discharged on prednisone taper. He was supposed to follow-up with his PCP which is supposed to have happen tomorrow. notes that once the prednisone discontinued he had mild symptoms however the past 24 hours symptoms have become progressively worse with his oxygen saturation dropped into the 50s on occasions. With resident respiratory distress she decided to bring him to the ED for further evaluation. At presentation his blood pressure was 146/109, pulse 100, respiratory 23 and saturating 99 on 2 L oxygen. BMP was generally unremarkable besides the significantly increased bicarb at 31. D-dimer was elevated at 1.11 however CTA was negative of PE. Here WBC was 11.3 hemoglobin 14.2 platelet count 245. No bands were noted. Covid test was negative. Due to concerns of hospital associated pneumonia he was started on antibiotics with Levaquin, cefepime and vancomycin. Also received Solu-Medrol 125 mg and albuterol breathing treatments. He also received 1 L normal saline. Although he was saturating in the high 90s on 2 L oxygen, his work of breathing was severely increasedhe was placed on a BiPAP Hospitalist team was then consulted for admission Hospitalist ROS - Review of Systems Constitutional: denies: fever, chills, sweats Eyes: denies: pain, vision change, conjunctivae inflammation Respiratory: reports: cough, shortness of breath, SOB with excertion. denies: hemoptysis Gastrointestinal: denies: nausea, vomiting, abdominal pain Genitourinary: denies: dysuria, frequency, incontinence Neurological: denies: weakness, numbness, incoordination, change in speech Hospitalist History - Past Medical History Other Medical History: COPD, stroke - Family History Family History: reports: no pertinent history - Social History Smoking Status: Former smoker Alcohol: reports: None Living Situation: With Family Activity level: independent ambulation - Exam General Appearance: awake alert General - other findings: In respiratory distress, BiPAP in place Eye: PERRL, anicteric sclera ENT: normocephalic atraumatic, no oropharyngeal lesions Neck: supple, symmetric, no JVD, no thyromegaly Heart: RRR, no murmur, no gallops, no rubs Respiratory: no wheezes, no rales, no ronchi Respiratory - other findings: Severely diminished air movement bilaterally. Gastrointestinal: soft, non-tender, non-distended, normal bowel sounds Extremities: no cyanosis, no clubbing, no edema Neurological: cranial nerve grossly intact, no focal deficits Psychiatric: normal affect, normal behavior, A&O x 3 Hospitalist Results - Labs Result Diagrams: 02/23/20 22:27 02/23/20 22:27 Lab results: WBC 11.3 thou/uL (4.8-10.8) H 02/23/20 22:27 Hgb 14.2 g/dL (14.0-18.0) 02/23/20 22: Hct 42.8 % (42.0-52.0) 02/23/20 22: MCV 95.3 fL (78.0-98.0) 02/23/20 22: Plt Count 245 thou/uL (130-400) 02/23/20 22:27 Neutrophils % 72.5 % (42.0-75.0) 02/23/20 22:27 Sodium 142 mmol/L (136-145) 02/23/20 22:27 Potassium 4.5 mmol/L (3.5-5.1) 02/23/20 22:27 Chloride 102 mmol/L (98-107) 02/23/20 22:27 Carbon Dioxide 31 mmol/L (22-29) H 02/23/20 22:27 BUN 18 mg/dL (8.4-25.7) 02/23/20 22:27 Creatinine 0.85 mg/dL (0.7-1.3) 02/23/20 22:27 Glucose 120 mg/dL (70-105) H 02/23/20 22:27 Calcium 9.1 mg/dL (7.8-10.44) 02/23/20 22:27 Total Bilirubin 0.5 mg/dL (0.2-1.2) 02/23/20 22:27 AST 18 U/L (5-34) 02/23/20 22:27 ALT 28 U/L (8-55) 12/21/20 22:27 Alkaline Phosphatase 87 U/L (40-110) 02/23/20 22:27 Troponin I 0.019 ng/mL (< 0.028) 02/23/20 22:27 Serum Total Protein 7.2 g/dL (6.0-8.3) 02/23/20 22:27 Albumin 4.2 g/dL (3.5-5.0) 02/23/20 22:27 Hospitalist H&P A/P - Plan Plan: This is 59-year-old male patient with a history of COPD, recent hemorrhagic stroke who presents with severe worsening shortness of breath for the past 24 hours. This is concerning for severe COPD exacerbation. Acute hypoxic respiratory failure Likely secondary COPD exacerbation No pneumonic changes noted on chest imaging however cannot be entirely ruled out. Covid is negative. noted desaturation to the 50s at home Currently on BiPAPwe will continue Severe COPD exacerbation Received Solu-Medrol 125we will continue on 40 mg daily We will continue antibiotics of Levaquin Duo nebs as needed and scheduled Continue BiPAP Pulmonology consult in a.m. Recent hemorrhagic stroke Currently stable no focal deficit Hypertension BP fair Restart home blood pressure medication Monitor VT prophylaxisLovenox CODE STATUS full code.
[2020-02-24 02:21] LABS: Puncture Site RRA
[2020-02-24 02:25] LABS: Troponin I Less than 0.010 ng/mL (< 0.028)
[2020-02-24 03:44] VITALS: BMI 20.8
[2020-02-24 04:39] LABS: #Basophils 0.1 thou/uL (0.0-0.2); #Lymphocytes 0.5 thou/uL (1.20-3.40); #Monocytes 0.1 thou/uL (0.11-0.59); #Neutrophils 7.3 thou/uL (1.40-6.50); %Basophils 1.2 % (0.0-1.0); %Eosinophils 0.5 % (0.0-10.0); %Lymphocytes 5.6 % (21.0-51.0); %Monocytes 1.8 % (0.0-10.0); %Neutrophils 90.9 % (42.0-75.0); Hemoglobin 12.4 g/dL (14.0-18.0); Mean Corpuscular HGB CONC 33.1 g/dL (32.0-36.0); Mean Corpuscular Hemoglobin 32.1 pg (27.0-31.0); Mean Platelet Volume 7.2 fL (7.4-10.4); Platelet Count 211 thou/uL (130-400); RBC Distribution Width 11.2 % (11.5-14.5); Red Blood Cell (RBC) Count 3.86 mill/uL (4.70-6.10)
[2020-02-24 04:52] LABS: Anion Gap 12 mmol/L (10-20); BUN (Urea Nitrogen) 17 mg/dL (8.4-25.7); Calc. Creatinine Clearance 93 mL/min (70-130); Calcium 8.7 mg/dL (7.8-10.44); Carbon Dioxide 29 mmol/L (22-29); Chloride 103 mmol/L (98-107); Glucose 121 mg/dL (70-105); Potassium 4.5 mmol/L (3.5-5.1); Sodium 139 mmol/L (136-145)
[2020-02-24 05:02] LABS: Troponin I Less than 0.010 ng/mL (< 0.028)
--- NOTE | 2020-02-24 07:18 | PDOC.HOSPP ---
- Subjective Encounter Date: 02/24/20 Encounter Time: 07:16 Subjective: 'fine', no sob at present - Objective Vital Signs & Weight: Vital Signs (12 hours) Temp Pulse Resp BP Pulse Ox 02/24/20 03:47 96 02/24/20 03:42 97.0 F L 02/24/20 03:28 97.6 F 87 23 H 125/77 96 Weight Weight 141 lb 6.4 oz Result Diagrams: 02/24/20 04:22 02/24/20 04:22 - Exam General Appearance: awake alert Neck: no JVD Heart: RRR, no murmur Respiratory: CTAB Gastrointestinal: soft, normal bowel sounds Extremities: no edema Hosp A/P (1) Acute respiratory failure with hypoxia Code(s): J96.01 - ACUTE RESPIRATORY FAILURE WITH HYPOXIA Status: Acute (2) COPD exacerbation Code(s): J44.1 - CHRONIC OBSTRUCTIVE PULMONARY DISEASE W (ACUTE) EXACERBATION Status: Acute (3) HTN (hypertension) Code(s): I10 - ESSENTIAL (PRIMARY) HYPERTENSION Status: Chronic Qualifiers: Hypertension type: essential hypertension Qualified Code(s): I10 - Essential (primary) hypertension (4) IVH (intraventricular hemorrhage) Code(s): I61.5 - NONTRAUMATIC INTRACEREBRAL HEMORRHAGE, INTRAVENTRICULAR Status: Chronic (5) Tobacco abuse Code(s): Z72.0 - TOBACCO USE Status: Chronic - Plan cont O2 cont nebs cont steroids add dulera move to medical, off bipap PRIOR TO ARRIVAL IN [facility]
[2020-02-24] MEDS: Cyanocobalamin (Vitamin B-12) 1,000 MCG TAB PO SCH (09:30)
[2020-02-24] MEDS: Carvedilol 6.25 MG TAB PO SCH ×2 (09:30→17:20)
[2020-02-24] MEDS: Enoxaparin Sodium 40 MG/0.4 ML SYRINGE SC SCH (09:31)
[2020-02-24] MEDS: Losartan 25 MG TAB PO SCH ×2 (09:31→20:24)
[2020-02-24] MEDS: Amlodipine 10 MG TAB PO SCH (09:31)
[2020-02-24] MEDS: methylPREDNISolone Sod Succ 40 MG VIAL IVP SCH (09:31)
[2020-02-24] MEDS: Thiamine 100 MG TAB PO SCH (09:31)
--- NOTE | 2020-02-24 11:18 | CON ---
DATE OF CONSULTATION: 02/24/2020 CONSULTING PHYSICIAN: Hospitalist. REASON FOR CONSULTATION: COPD exacerbation. HISTORY OF PRESENT ILLNESS: This patient was apparently admitted last night with COPD exacerbation, was briefly on BiPAP that has been discontinued. He feels better. Has no complaints. He has a two pack per day history of smoking, but quit about a year ago. He was recently in the hospital with a hemorrhagic stroke. PAST MEDICAL HISTORY: 1. Stroke. 2. Chronic obstructive pulmonary disease. PAST SURGICAL HISTORY: None. ALLERGIES: VANCOMYCIN. MEDICATIONS: Prior to admission 1. Albuterol. 2. Thiamine. 3. DuoNeb. 4. Cannabidiol. 5. Losartan. 6. Carvedilol. 7. Amlodipine. 8. . Current inpatient medications reviewed. See chart. REVIEW OF SYSTEMS: Otherwise negative. PHYSICAL EXAMINATION: VITAL SIGNS: Temperature 98.5, pulse 77, respirations 18, O2 saturation 99% on 2 L. HEENT: Unremarkable. NECK: No adenopathy or JVD. LUNGS: Clear. CARDIAC: S1, S2. Regular. ABDOMEN: Soft. EXTREMITIES: No edema. Chest x-ray shows no mass, effusion, or infiltrate. CT shows no blood clots. ASSESSMENT: Chronic obstructive pulmonary disease exacerbation. PLAN: The current treatment with nebs and steroids is appropriate. He has been transferred to the medical floor by Dr. Chino. Pulmonary really has no additional recommendations. We will be available as needed. Job ID: [id number]
[2020-02-24] MEDS: Mometasone 100 MCG/Formoterol 5 MCG 120 PUFF INHALER INH SCH (19:04)
[2020-02-24] MEDS: Acetaminophen 325 MG TAB PO PRN (21:04)
[2020-02-25] MEDS: Mometasone 100 MCG/Formoterol 5 MCG 120 PUFF INHALER INH SCH ×2 (07:54→18:28)
[2020-02-25] MEDS: Cyanocobalamin (Vitamin B-12) 1,000 MCG TAB PO SCH (08:56)
[2020-02-25] MEDS: Carvedilol 6.25 MG TAB PO SCH ×2 (08:57→17:08)
[2020-02-25] MEDS: Thiamine 100 MG TAB PO SCH (08:57)
[2020-02-25] MEDS: Losartan 25 MG TAB PO SCH ×2 (08:57→20:26)
[2020-02-25] MEDS: Amlodipine 10 MG TAB PO SCH (08:57)
[2020-02-25] MEDS: Enoxaparin Sodium 40 MG/0.4 ML SYRINGE SC SCH (08:58)
[2020-02-25] MEDS: methylPREDNISolone Sod Succ 40 MG VIAL IVP SCH (08:59)
--- NOTE | 2020-02-25 09:35 | PDOC.HOSPP ---
- Subjective Encounter Date: 02/25/20 Encounter Time: 09:33 Subjective: 60-70% back to normal - Objective Vital Signs & Weight: Vital Signs (12 hours) Temp Pulse Resp BP BP BP Pulse Ox 02/25/20 08:57 78 125/73 02/25/20 08:00 99.5 F 78 16 125/73 98 02/25/20 07:56 70 14 02/25/20 04:00 98.8 F 80 16 122/64 96 02/24/20 23:36 99.5 F 85 16 111/61 98 Weight Weight 141 lb 6.4 oz Most Recent Monitor Data Heart Rate from ECG 84 NIBP 130/76 NIBP BP-Mean 94 Respiration from ECG 26 SpO2 97 I&O: 02/24/20 02/25/20 02/26/20 06:59 06:59 06:59 Intake Total 430 Output Total 225 Balance 205 Result Diagrams: 02/24/20 04:22 02/24/20 04:22 Hospitalist ROS - Medication Medications: Active Medications Generic Name Dose Route Start Last Admin Trade Name Freq PRN Reason Stop Dose Admin Acetaminophen 650 mg 02/24/20 20:48 02/24/20 21:04 Acetaminophen 325 Mg Tab PO 650 mg Q4H PRN Administration Headache/Fever/Mild Pain (1-3) Albuterol/Ipratropium 3 ml 02/24/20 02:30 02/25/20 07:56 Ipratropium/Albuterol Sulfate 3 Ml Neb NEB 3 ml [id number] LIZ Administration Amlodipine Besylate 10 mg 02/24/20 09:00 02/25/20 08:57 Amlodipine 10 Mg Tab PO 10 mg DAILY LIZ Administration Carvedilol 12.5 mg 02/24/20 08:00 02/25/20 08:57 Carvedilol 6.25 Mg Tab PO 12.5 mg BID-WM LIZ Administration Cyanocobalamin 1,000 mcg 02/24/20 09:00 02/25/20 08:56 Cyanocobalamin (Vitamin B-12) 1,000 Mcg Tab PO 1,000 mcg DAILY LIZ Administration Enoxaparin Sodium 40 mg 02/24/20 09:00 02/25/20 08:58 Enoxaparin Sodium 40 Mg/0.4 Ml Syringe SC 40 mg 0900 LIZ Administration Levofloxacin 750 mg 02/24/20 21:00 02/24/20 20:24 Levofloxacin 750 Mg Tab PO 750 mg HS LIZ Administration Losartan Potassium 25 mg 02/24/20 09:00 02/25/20 08:57 Losartan 25 Mg Tab PO 25 mg BID LIZ Administration Methylprednisolone Sodium Succinate 40 mg 02/24/20 09:00 02/25/20 08:59 Methylprednisolone Sod Succ 40 Mg Vial IVP 40 mg DAILY LIZ Administration Mometasone Furoate/Formoterol Fumar 2 puff 02/24/20 18:30 02/25/20 07:54 Mometasone 100 Mcg/Formoterol 5 Mcg 120 Puff Inhaler INH 2 puff BID-RT LIZ Administration Sodium Chloride 10 ml 02/24/20 09:00 02/25/20 08:59 Flush - Normal Saline 10 Ml Syringe IVF 10 ml Q12HR LIZ Administration Thiamine HCl 100 mg 02/24/20 09:00 02/25/20 08:57 Thiamine 100 Mg Tab PO 100 mg DAILY LIZ Administration - Exam General Appearance: awake alert Neck: no JVD Heart: RRR, no murmur Respiratory - other findings: coarse exp BS Gastrointestinal: soft, non-tender, normal bowel sounds Extremities: no edema Hosp A/P (1) Acute respiratory failure with hypoxia Code(s): J96.01 - ACUTE RESPIRATORY FAILURE WITH HYPOXIA Status: Acute (2) COPD exacerbation Code(s): J44.1 - CHRONIC OBSTRUCTIVE PULMONARY DISEASE W (ACUTE) EXACERBATION Status: Acute (3) HTN (hypertension) Code(s): I10 - ESSENTIAL (PRIMARY) HYPERTENSION Status: Chronic Qualifiers: Hypertension type: essential hypertension Qualified Code(s): I10 - Essential (primary) hypertension (4) IVH (intraventricular hemorrhage) Code(s): I61.5 - NONTRAUMATIC INTRACEREBRAL HEMORRHAGE, INTRAVENTRICULAR Status: Chronic (5) Tobacco abuse Code(s): Z72.0 - TOBACCO USE Status: Chronic - Plan cont O2 cont nebs cont steroids add dulera cont nebs, steroids, O2 ,Dukera hopefull home 1-2 days
[2020-02-25] MEDS: Acetaminophen 325 MG TAB PO PRN (20:26)
[2020-02-26] MEDS: Mometasone 100 MCG/Formoterol 5 MCG 120 PUFF INHALER INH SCH ×2 (07:37→19:30)
[2020-02-26] MEDS: Carvedilol 6.25 MG TAB PO SCH ×2 (10:13→18:27)
[2020-02-26] MEDS: Amlodipine 10 MG TAB PO SCH (10:14)
[2020-02-26] MEDS: Cyanocobalamin (Vitamin B-12) 1,000 MCG TAB PO SCH (10:14)
[2020-02-26] MEDS: methylPREDNISolone Sod Succ 40 MG VIAL IVP SCH (10:14)
[2020-02-26] MEDS: Enoxaparin Sodium 40 MG/0.4 ML SYRINGE SC SCH (10:14)
[2020-02-26] MEDS: Thiamine 100 MG TAB PO SCH (10:14)
[2020-02-26] MEDS: Losartan 25 MG TAB PO SCH ×2 (10:14→21:29)
--- NOTE | 2020-02-26 19:19 | PDOC.HOSPP ---
- Subjective Encounter Date: 02/26/20 Encounter Time: 10:00 Subjective: Patient seen and examined for COPD exacerbation. Short of breath on [id number] exertion. Mild cough without significant production. Denies any chest pain or palpitations. - Objective Vital Signs & Weight: Vital Signs (12 hours) Temp Pulse Resp BP BP Pulse Ox 02/26/20 18:27 134/78 02/26/20 14:50 90 14 02/26/20 10:14 74 02/26/20 10:13 156/80 H 02/26/20 08:00 97.9 F 74 152/80 H 94 L 02/26/20 07:39 80 14 Weight Weight 141 lb 6.4 oz Most Recent Monitor Data Heart Rate from ECG 84 NIBP 130/76 NIBP BP-Mean 94 Respiration from ECG 26 SpO2 97 I&O: 02/25/20 02/26/20 02/27/20 06:59 06:59 06:59 Intake Total 430 540 960 Output Total 225 Balance 205 540 960 Result Diagrams: 02/24/20 04:22 02/24/20 04:22 Additional Labs: Microbiology - Entire Visit 02/23/20 23:06 Venous blood - Left Arm Blood Culture - Preliminary NO GROWTH AT 48 HOURS 02/23/20 22:57 Venous blood - Right Arm Blood Culture - Preliminary NO GROWTH AT 48 HOURS Radiology Reviewed by me: Yes (Chest x-rayno infiltrate) Hospitalist ROS - Review of Systems Constitutional: denies: fever, chills, sweats, weakness, malaise, other Gastrointestinal: denies: nausea, vomiting, abdominal pain, diarrhea, constipation, melena, hematochezia, other - Medication Medications: Active Medications Generic Name Dose Route Start Last Admin Trade Name Freq PRN Reason Stop Dose Admin Acetaminophen 650 mg 02/24/20 20:48 02/25/20 20:26 Acetaminophen 325 Mg Tab PO 650 mg Q4H PRN Administration Headache/Fever/Mild Pain (1-3) Albuterol/Ipratropium 3 ml 02/24/20 02:30 02/26/20 14:50 Ipratropium/Albuterol Sulfate 3 Ml Neb NEB 3 ml [id number] LIZ Administration Amlodipine Besylate 10 mg 02/24/20 09:00 02/26/20 10:14 Amlodipine 10 Mg Tab PO 10 mg DAILY LIZ Administration Carvedilol 12.5 mg 02/24/20 08:00 02/26/20 18:27 Carvedilol 6.25 Mg Tab PO 12.5 mg BID-WM LIZ Administration Cyanocobalamin 1,000 mcg 02/24/20 09:00 02/26/20 10:14 Cyanocobalamin (Vitamin B-12) 1,000 Mcg Tab PO 1,000 mcg DAILY LIZ Administration Enoxaparin Sodium 40 mg 02/24/20 09:00 02/26/20 10:14 Enoxaparin Sodium 40 Mg/0.4 Ml Syringe SC 40 mg 0900 LIZ Administration Levofloxacin 750 mg 02/24/20 21:00 02/25/20 20:26 Levofloxacin 750 Mg Tab PO 750 mg HS LIZ Administration Losartan Potassium 25 mg 02/24/20 09:00 02/26/20 10:14 Losartan 25 Mg Tab PO 25 mg BID LIZ Administration Methylprednisolone Sodium Succinate 40 mg 02/24/20 09:00 02/26/20 10:14 Methylprednisolone Sod Succ 40 Mg Vial IVP 40 mg DAILY LIZ Administration Mometasone Furoate/Formoterol Fumar 2 puff 02/24/20 18:30 02/26/20 07:37 Mometasone 100 Mcg/Formoterol 5 Mcg 120 Puff Inhaler INH 2 puff BID-RT LIZ Administration Sodium Chloride 10 ml 02/24/20 09:00 02/26/20 10:15 Flush - Normal Saline 10 Ml Syringe IVF 10 ml Q12HR LIZ Administration Thiamine HCl 100 mg 02/24/20 09:00 02/26/20 10:14 Thiamine 100 Mg Tab PO 100 mg DAILY LIZ Administration - Exam General Appearance: NAD Heart: RRR, no gallops Respiratory: no rales, rhonchi, wheezes (Scattered) Gastrointestinal: soft, non-distended Extremities: no cyanosis, no clubbing Neurological: no new deficit Hosp A/P - Plan DVT proph w/SCDs 59-year-old male with recent hemorrhagic stroke and COPD presented to the hospital with shortness of breath. His work-up was consistent with COPD exacerbation. He was started on O2 supplementation, bronchodilators and IV steroids. CT angiogram was negative for pulmonary embolism. He was placed on noninvasive positive pressure ventilation. He was then transferred to medical floor. Assessment: Acute hypoxic and hypercapnic respiratory failure due to COPD exacerbationPOA History of severe COPD History of tobacco abusequit about 1 year ago Recent hospitalization for hemorrhagic CVA Hypertension Plan: Continue nebulizer treatment. Continue Levaquin. Change steroids to p.o. Will hold Lovenox due to recent hemorrhagic CVA. Will consult walking program. Will require home O2 at discharge. Add Pepcid for GI prophylaxis. Continue other medications as above.
[2020-02-26] MEDS: Famotidine 20 MG TAB PO SCH (21:29)
[2020-02-27 06:48] LABS: Anion Gap 11 mmol/L (10-20); BUN (Urea Nitrogen) 22 mg/dL (8.4-25.7); Calc. Creatinine Clearance 81 mL/min (70-130); Carbon Dioxide 31 mmol/L (22-29); Chloride 101 mmol/L (98-107); Glucose 94 mg/dL (70-105); Magnesium 1.9 mg/dL (1.6-2.6); Sodium 139 mmol/L (136-145)
[2020-02-27] MEDS: Cyanocobalamin (Vitamin B-12) 1,000 MCG TAB PO SCH (09:37)
[2020-02-27] MEDS: Famotidine 20 MG TAB PO SCH ×2 (09:38→19:46)
[2020-02-27] MEDS: Carvedilol 6.25 MG TAB PO SCH ×2 (09:38→16:58)
[2020-02-27] MEDS: Losartan 25 MG TAB PO SCH ×2 (09:38→19:46)
[2020-02-27] MEDS: Amlodipine 10 MG TAB PO SCH (09:38)
[2020-02-27] MEDS: Thiamine 100 MG TAB PO SCH (09:39)
[2020-02-27] MEDS: predniSONE 20 MG TAB PO SCH ×2 (09:39→16:58)
[2020-02-27] MEDS ORDERED: Magnesium Sulfate 2 GM in Sodium Chloride 0.9% 100 ML IVPB SCH (09:45)
[2020-02-27] MEDS: Mometasone 100 MCG/Formoterol 5 MCG 120 PUFF INHALER INH SCH ×2 (09:55→19:12)
[2020-02-27] MEDS: Magnesium 2 GM/50 ML 2 GM in Premix Bag 1 BAG IVPB SCH ×2 (10:10→11:13)
--- NOTE | 2020-02-27 18:47 | PDOC.HOSPP ---
- Subjective Encounter Date: 02/27/20 Encounter Time: 14:00 Subjective: Patient seen and examined for COPD exacerbation with respiratory failure. Shortness of breath improving. Mild dry cough. No wheezing reported. Requiring supplemental oxygen. - Objective Vital Signs & Weight: Vital Signs (12 hours) Temp Pulse Resp BP BP Pulse Ox 02/27/20 16:58 134/78 02/27/20 10:00 85 16 95 02/27/20 09:38 72 134/78 02/27/20 08:35 98.8 F 72 16 147/81 H 92 L Weight Weight 141 lb 6.4 oz Most Recent Monitor Data Heart Rate from ECG 84 NIBP 130/76 NIBP BP-Mean 94 Respiration from ECG 26 SpO2 97 I&O: 02/26/20 02/27/20 02/28/20 06:59 06:59 06:59 Intake Total 540 1060 Balance 540 1060 Result Diagrams: 02/24/20 04:22 02/27/20 06:07 Additional Labs: Abnormal Lab Results - Last 48 hrs 02/27/20 06:07: Carbon Dioxide 31 H Microbiology - Entire Visit 02/23/20 23:06 Venous blood - Left Arm Blood Culture - Preliminary NO GROWTH AT 48 HOURS 02/23/20 22:57 Venous blood - Right Arm Blood Culture - Preliminary NO GROWTH AT 48 HOURS Hospitalist ROS - Review of Systems Constitutional: reports: weakness. denies: fever, chills, sweats, malaise, other Gastrointestinal: denies: nausea, vomiting, abdominal pain, diarrhea, constipation, melena, hematochezia, other - Medication Medications: Active Medications Generic Name Dose Route Start Last Admin Trade Name Benitoq PRN Reason Stop Dose Admin Acetaminophen 650 mg 02/24/20 20:48 02/25/20 20:26 Acetaminophen 325 Mg Tab PO 650 mg Q4H PRN Administration Headache/Fever/Mild Pain (1-3) Albuterol/Ipratropium 3 ml 02/24/20 02:30 02/27/20 14:30 Ipratropium/Albuterol Sulfate 3 Ml Neb NEB 3 ml [id number] LIZ Administration Amlodipine Besylate 10 mg 02/24/20 09:00 02/27/20 09:38 Amlodipine 10 Mg Tab PO 10 mg DAILY LIZ Administration Carvedilol 12.5 mg 02/24/20 08:00 02/27/20 16:58 Carvedilol 6.25 Mg Tab PO 12.5 mg BID-WM LIZ Administration Cyanocobalamin 1,000 mcg 02/24/20 09:00 02/27/20 09:37 Cyanocobalamin (Vitamin B-12) 1,000 Mcg Tab PO 1,000 mcg DAILY LIZ Administration Famotidine 20 mg 02/26/20 21:00 02/27/20 09:38 Famotidine 20 Mg Tab PO 20 mg BID LIZ Administration Levofloxacin 750 mg 02/24/20 21:00 02/26/20 21:29 Levofloxacin 750 Mg Tab PO 750 mg HS LIZ Administration Losartan Potassium 25 mg 02/24/20 09:00 02/27/20 09:38 Losartan 25 Mg Tab PO 25 mg BID LIZ Administration Mometasone Furoate/Formoterol Fumar 2 puff 02/24/20 18:30 02/27/20 09:55 Mometasone 100 Mcg/Formoterol 5 Mcg 120 Puff Inhaler INH 2 puff BID-RT LIZ Administration Prednisone 20 mg 02/27/20 08:00 02/27/20 16:58 Prednisone 20 Mg Tab PO 20 mg BID-WM LIZ Administration Sodium Chloride 10 ml 02/24/20 09:00 02/27/20 09:40 Flush - Normal Saline 10 Ml Syringe IVF 10 ml Q12HR LIZ Administration Thiamine HCl 100 mg 02/24/20 09:00 02/27/20 09:39 Thiamine 100 Mg Tab PO 100 mg DAILY LIZ Administration - Exam General Appearance: NAD (At rest) Heart: RRR, no gallops Respiratory: no wheezes, no rales, rhonchi Gastrointestinal: soft, non-tender, no guarding, no rigidity Extremities: no cyanosis, no clubbing Musculoskeletal: generalized weakness Psychiatric: A&O x 3 Hosp A/P - Plan DVT proph w/SCDs 59-year-old male with recent hemorrhagic stroke and COPD presented to the hospital with shortness of breath. His work-up was consistent with COPD exace rbation. He was started on O2 supplementation, bronchodilators and IV steroids. CT angiogram was negative for pulmonary embolism. He was placed on noninvasive positive pressure ventilation. He was then transferred to medical floor. Assessment: Acute hypoxic and hypercapnic respiratory failure due to COPD exacerbation History of severe COPD History of tobacco abusequit about 1 year ago Recent hospitalization for hemorrhagic CVA Hypertension Hypomagnesemia Plan: Replace magnesium. Continue nebulizer treatment. Continue Levaquin. Continue prednisone. Wean O2 as tolerated. DC in 1 to 2 days if stable. Patient may need home oxygen at discharge. Continue carvedilol, losartan and other medications as above. Walking program.
--- NOTE | 2020-02-28 09:08 | PDOC.HOSPP ---
- Subjective Encounter Date: 02/28/20 Encounter Time: 09:00 Subjective: f/u for COPD exacerbation currently on O2 @ 1L/min/Dulera/Duonebs/Levaquin/Prednisone. Overall feeling better, ambulating in halls. Good appetite. - Objective Vital Signs & Weight: Vital Signs (12 hours) Temp Pulse Resp BP Pulse Ox 02/28/20 06:46 99.2 F 75 16 128/79 96 Weight Weight 141 lb 6.4 oz Most Recent Monitor Data Heart Rate from ECG 84 NIBP 130/76 NIBP BP-Mean 94 Respiration from ECG 26 SpO2 97 I&O: 02/27/20 02/28/20 02/29/20 06:59 06:59 06:59 Intake Total 1060 240 Balance 1060 240 Result Diagrams: 02/24/20 04:22 02/27/20 06:07 Additional Labs: Microbiology 02/23/20 23:06 Venous blood - Left Arm Blood Culture - Preliminary NO GROWTH AT 48 HOURS 02/23/20 22:57 Venous blood - Right Arm Blood Culture - Preliminary NO GROWTH AT 48 HOURS Laboratory Tests 02/24/20 00:24 Influenza A RNA INAAT Not Detected Influenza B RNA INAAT Not Detected SARS-CoV-2 Rap RNA(RT-PCR) Not Detected Hospitalist ROS - Medication Medications: Active Medications Generic Name Dose Route Start Last Admin Trade Name Freq PRN Reason Stop Dose Admin Acetaminophen 650 mg 02/24/20 20:48 02/25/20 20:26 Acetaminophen 325 Mg Tab PO 650 mg Q4H PRN Administration Headache/Fever/Mild Pain (1-3) Albuterol/Ipratropium 3 ml 02/24/20 02:30 02/28/20 06:43 Ipratropium/Albuterol Sulfate 3 Ml Neb NEB Not Given [id number] LIZ Amlodipine Besylate 10 mg 02/24/20 09:00 02/27/20 09:38 Amlodipine 10 Mg Tab PO 10 mg DAILY LIZ Administration Carvedilol 12.5 mg 02/24/20 08:00 02/27/20 16:58 Carvedilol 6.25 Mg Tab PO 12.5 mg BID-WM LIZ Administration Cyanocobalamin 1,000 mcg 02/24/20 09:00 02/27/20 09:37 Cyanocobalamin (Vitamin B-12) 1,000 Mcg Tab PO 1,000 mcg DAILY LIZ Administration Famotidine 20 mg 02/26/20 21:00 02/27/20 19:46 Famotidine 20 Mg Tab PO 20 mg BID LIZ Administration Levofloxacin 750 mg 02/24/20 21:00 02/27/20 19:46 Levofloxacin 750 Mg Tab PO 750 mg HS LIZ Administration Losartan Potassium 25 mg 02/24/20 09:00 02/27/20 19:46 Losartan 25 Mg Tab PO 25 mg BID LIZ Administration Mometasone Furoate/Formoterol Fumar 2 puff 02/24/20 18:30 02/27/20 19:12 Mometasone 100 Mcg/Formoterol 5 Mcg 120 Puff Inhaler INH Not Given BID-RT LIZ Prednisone 20 mg 02/27/20 08:00 02/27/20 16:58 Prednisone 20 Mg Tab PO 20 mg BID-WM LIZ Administration Sodium Chloride 10 ml 02/24/20 09:00 02/27/20 19:46 Flush - Normal Saline 10 Ml Syringe IVF 10 ml Q12HR LIZ Administration Thiamine HCl 100 mg 02/24/20 09:00 02/27/20 09:39 Thiamine 100 Mg Tab PO 100 mg DAILY LIZ Administration - Exam General Appearance: NAD, awake alert Eye: PERRL, anicteric sclera ENT: normocephalic atraumatic, no oropharyngeal lesions Neck: supple, symmetric, no JVD, no thyromegaly, no lymphadenopathy Heart: RRR, no murmur, no gallops, no rubs, normal peripheral pulses Heart - other findings: S1, S2 Respiratory - other findings: diminished flow in bases, occ exp wheeze Gastrointestinal: soft, non-tender, non-distended, normal bowel sounds, no palpable masses Extremities: no cyanosis, no clubbing, no edema Skin: normal turgor, no lesions Neurological: cranial nerve grossly intact, no new deficit Musculoskeletal: normal tone, normal strength, no muscle wasting Psychiatric: normal affect, A&O x 3 Hosp A/P (1) Acute respiratory failure with hypoxia Code(s): J96.01 - ACUTE RESPIRATORY FAILURE WITH HYPOXIA Status: Acute Plan: Improved, wean O2 as clinically indicated (2) COPD exacerbation Code(s): J44.1 - CHRONIC OBSTRUCTIVE PULMONARY DISEASE W (ACUTE) EXACERBATION Status: Acute Plan: Improved, continue Levaquin/Prednisone/Duonebs/Dulera, wean O2 as clinically indicated (3) Cannabis abuse Code(s): F12.10 - CANNABIS ABUSE, UNCOMPLICATED Status: Chronic (4) HTN (hypertension) Code(s): I10 - ESSENTIAL (PRIMARY) HYPERTENSION Status: Chronic Qualifiers: Hypertension type: essential hypertension Qualified Code(s): I10 - Essential (primary) hypertension Plan: Stable, continue home BP regimen (5) IVH (intraventricular hemorrhage) Code(s): I61.5 - NONTRAUMATIC INTRACEREBRAL HEMORRHAGE, INTRAVENTRICULAR Status: Chronic Plan: Supportive mgmt, OOB with PT, secondary prevention - Plan continue antibiotics, PT/OT, neonatal social worker, respiratory therapy, out of bed/ambulate, DVT proph w/SCDs Stable overall Wean O2 as clinically indicated OOB/PT Continue Levaquin/Prednisone Avoid tobacco/THC Likely home in 24-48h
[2020-02-28] MEDS: predniSONE 20 MG TAB PO SCH ×2 (09:46→17:18)
[2020-02-28] MEDS: Carvedilol 6.25 MG TAB PO SCH ×2 (09:46→17:18)
[2020-02-28] MEDS: Famotidine 20 MG TAB PO SCH ×2 (09:47→19:48)
[2020-02-28] MEDS: Cyanocobalamin (Vitamin B-12) 1,000 MCG TAB PO SCH (09:47)
[2020-02-28] MEDS: Amlodipine 10 MG TAB PO SCH (09:47)
[2020-02-28] MEDS: Thiamine 100 MG TAB PO SCH (09:48)
[2020-02-28] MEDS: Losartan 25 MG TAB PO SCH ×2 (09:48→19:48)
[2020-02-28] MEDS: Mometasone 100 MCG/Formoterol 5 MCG 120 PUFF INHALER INH SCH ×2 (10:00→19:18)
[2020-02-29] MEDS: Mometasone 100 MCG/Formoterol 5 MCG 120 PUFF INHALER INH SCH ×2 (06:30→19:25)
[2020-02-29] MEDS: Cyanocobalamin (Vitamin B-12) 1,000 MCG TAB PO SCH (08:13)
[2020-02-29] MEDS: Carvedilol 6.25 MG TAB PO SCH ×2 (08:13→16:31)
[2020-02-29] MEDS: Thiamine 100 MG TAB PO SCH (08:13)
[2020-02-29] MEDS: Famotidine 20 MG TAB PO SCH ×2 (08:13→19:46)
[2020-02-29] MEDS: predniSONE 20 MG TAB PO SCH ×2 (08:14→16:31)
[2020-02-29] MEDS: Amlodipine 10 MG TAB PO SCH (08:14)
[2020-02-29] MEDS: Losartan 25 MG TAB PO SCH ×2 (08:14→19:47)
--- NOTE | 2020-02-29 17:24 | PDOC.HOSPP ---
- Subjective Encounter Date: 02/29/20 Encounter Time: 17:20 Subjective: f/u for COPD exacerbation receiving Levaquin/Prednisone/Duonebs/Dulera off O2 supplementation intermittenly. Overall feeling better. - Objective Vital Signs & Weight: Vital Signs (12 hours) Temp Pulse Resp BP BP Pulse Ox 02/29/20 15:40 80 12 02/29/20 11:37 84 16 02/29/20 08:14 81 135/81 02/29/20 08:13 135/81 02/29/20 07:30 97.4 F L 81 20 135/81 92 L 02/29/20 06:20 78 16 Weight Weight 141 lb 6.4 oz Most Recent Monitor Data Heart Rate from ECG 84 NIBP 130/76 NIBP BP-Mean 94 Respiration from ECG 26 SpO2 97 I&O: 02/28/20 02/29/20 03/01/20 06:59 06:59 06:59 Intake Total 240 1080 Balance 240 1080 Result Diagrams: 02/24/20 04:22 02/27/20 06:07 Additional Labs: Microbiology 02/23/20 23:06 Venous blood - Left Arm Blood Culture - Preliminary NO GROWTH AT 48 HOURS 02/23/20 22:57 Venous blood - Right Arm Blood Culture - Preliminary NO GROWTH AT 48 HOURS Laboratory Tests 02/24/20 00:24 Influenza A RNA INAAT Not Detected Influenza B RNA INAAT Not Detected SARS-CoV-2 Rap RNA(RT-PCR) Not Detected Hospitalist ROS - Medication Medications: Active Medications Generic Name Dose Route Start Last Admin Trade Name Freq PRN Reason Stop Dose Admin Acetaminophen 650 mg 02/24/20 20:48 02/25/20 20:26 Acetaminophen 325 Mg Tab PO 650 mg Q4H PRN Administration Headache/Fever/Mild Pain (1-3) Albuterol/Ipratropium 3 ml 02/24/20 02:30 02/29/20 15:40 Ipratropium/Albuterol Sulfate 3 Ml Neb NEB 3 ml [id number] LIZ Administration Amlodipine Besylate 10 mg 02/24/20 09:00 02/29/20 08:14 Amlodipine 10 Mg Tab PO 10 mg DAILY LIZ Administration Carvedilol 12.5 mg 02/24/20 08:00 02/29/20 16:31 Carvedilol 6.25 Mg Tab PO 12.5 mg BID-WM LIZ Administration Cyanocobalamin 1,000 mcg 02/24/20 09:00 02/29/20 08:13 Cyanocobalamin (Vitamin B-12) 1,000 Mcg Tab PO 1,000 mcg DAILY LIZ Administration Famotidine 20 mg 02/26/20 21:00 02/29/20 08:13 Famotidine 20 Mg Tab PO 20 mg BID LIZ Administration Levofloxacin 750 mg 02/24/20 21:00 02/28/20 19:48 Levofloxacin 750 Mg Tab PO 750 mg HS LIZ Administration Losartan Potassium 25 mg 02/24/20 09:00 02/29/20 08:14 Losartan 25 Mg Tab PO 25 mg BID LIZ Administration Mometasone Furoate/Formoterol Fumar 2 puff 02/24/20 18:30 02/29/20 06:30 Mometasone 100 Mcg/Formoterol 5 Mcg 120 Puff Inhaler INH 2 puff BID-RT LIZ Administration Prednisone 20 mg 02/27/20 08:00 02/29/20 16:31 Prednisone 20 Mg Tab PO 20 mg BID-WM LIZ Administration Sodium Chloride 10 ml 02/24/20 09:00 02/29/20 08:15 Flush - Normal Saline 10 Ml Syringe IVF 10 ml Q12HR LIZ Administration Thiamine HCl 100 mg 02/24/20 09:00 02/29/20 08:13 Thiamine 100 Mg Tab PO 100 mg DAILY LIZ Administration - Exam General Appearance: NAD, awake alert Eye: PERRL, anicteric sclera ENT: normocephalic atraumatic, no oropharyngeal lesions Neck: supple, symmetric, no JVD, no thyromegaly, no lymphadenopathy Heart: RRR, no murmur, no gallops, no rubs, normal peripheral pulses Heart - other findings: S1, S2 Respiratory: no tachypnea Respiratory - other findings: few rhonchi, diminished in bases Gastrointestinal: soft, non-tender, non-distended, normal bowel sounds, no palpable masses Extremities: no cyanosis, no clubbing, no edema Skin: normal turgor, no lesions Neurological: cranial nerve grossly intact, no new deficit Musculoskeletal: normal tone, normal strength, no muscle wasting Psychiatric: normal affect, A&O x 3 Hosp A/P (1) Acute respiratory failure with hypoxia Code(s): J96.01 - ACUTE RESPIRATORY FAILURE WITH HYPOXIA Status: Acute Plan: Improved, wean O2 as indicated, assess for home O2 needs (2) COPD exacerbation Code(s): J44.1 - CHRONIC OBSTRUCTIVE PULMONARY DISEASE W (ACUTE) EXACERBATION Status: Acute Plan: Improved, continue current regimen (3) Cannabis abuse Code(s): F12.10 - CANNABIS ABUSE, UNCOMPLICATED Status: Chronic (4) HTN (hypertension) Code(s): I10 - ESSENTIAL (PRIMARY) HYPERTENSION Status: Chronic Qualifiers: Hypertension type: essential hypertension Qualified Code(s): I10 - Essential (primary) hypertension (5) IVH (intraventricular hemorrhage) Code(s): I61.5 - NONTRAUMATIC INTRACEREBRAL HEMORRHAGE, INTRAVENTRICULAR Status: Chronic Plan: Stable, routine stroke protocol - Plan continue antibiotics, PT/OT, social work professor, respiratory therapy, out of bed/ambulate Stable overall Wean O2 as clinically indicated OOB/PT Continue Levaquin/Prednisone Avoid tobacco/THC Likely home in 24h
[2020-03-01] MEDS: Mometasone 100 MCG/Formoterol 5 MCG 120 PUFF INHALER INH SCH ×2 (07:47→07:56)
[2020-03-01 08:00] VITALS: TEMP 97.5
[2020-03-01] MEDS: Thiamine 100 MG TAB PO SCH (08:28)
[2020-03-01] MEDS: Cyanocobalamin (Vitamin B-12) 1,000 MCG TAB PO SCH (08:28)
[2020-03-01] MEDS: Carvedilol 6.25 MG TAB PO SCH (08:28)
[2020-03-01] MEDS: Famotidine 20 MG TAB PO SCH (08:29)
[2020-03-01] MEDS: predniSONE 20 MG TAB PO SCH (08:29)
[2020-03-01] MEDS: Amlodipine 10 MG TAB PO SCH (08:29)
[2020-03-01] MEDS: Losartan 25 MG TAB PO SCH (08:29)
[2020-03-01 08:30] VITALS: BP 135/81
--- NOTE | 2020-03-01 11:21 | DIS ---
DATE OF ADMISSION: 02/24/2020 DATE OF DISCHARGE: 03/01/2020 DISCHARGE DIAGNOSES: 1. Acute hypoxic respiratory failure, improved. 2. Chronic obstructive pulmonary disease exacerbation. 3. Cannabis use. 4. Hypertension, stable. 5. History of intraventricular hemorrhage. CONSULTATIONS: Dr. Laura with Pulmonology Service. PERTINENT LABORATORY AND X-RAY FINDINGS: Carbon dioxide level ranged between 29 to 31. Troponin-I negative x3. Magnesium level 1.9. CBC showed a white blood cell count ranging between 8.0 to 11.3. COVID-19 PCR not detected on 02/24/2020. Influenza A and B antigen negative on 02/24/2020. Blood cultures x2 dated 02/23/2020, showed no growth at 5 days. Portable chest x-ray dated 02/23/2020, showed no acute cardiopulmonary process. CT angiogram of the chest dated 02/23/2020, showed no evidence for pulmonary embolus. Emphysematous changes bilaterally, chronic scarring, and interstitial changes in the right lung apex. HOSPITAL COURSE: The patient was initially admitted after presenting with COPD exacerbation with associated hypoxia requiring 2 L/minute by nasal cannula. Patient initially was given IV Solu-Medrol, and intravenous normal saline, and continued on oxygen supplementation. Patient transitioned from oxygen by nasal cannula to BiPAP, noninvasive mechanical ventilation, and monitored for clinical response. The patient was transitioned off BiPAP noninvasive mechanical ventilation, and continued on oxygen supplementation by nasal cannula for the remainder of the hospital course, eventually transitioning to room air, maintaining O2 saturations in the mid 90% range. Overall, the patient did remain clinically stable throughout the hospital course tolerating regular oral intake with stable vital signs. I have examined the patient at the time of discharge and discussed followup instructions. The patient verbalized his understanding and agreement, ready for discharge on 03/01/2020. DISCHARGE MEDICATIONS: 1. Albuterol sulfate 18 g inhaled q.i.d. p.r.n. 2. Coreg 12.5 mg p.o. b.i.d. 3. Losartan 25 mg p.o. b.i.d. 4. Dulera 100/5 mcg 2 puffs inhaled b.i.d. 5. DuoNeb 3 mL nebulized q.4 hours p.r.n. 6. Levaquin 750 mg p.o. q.h.s. x5 days. 7. Norvasc 10 mg p.o. daily. 8. Prednisone 20 mg p.o. daily x5 days followed by 10 mg p.o. daily x5 days. 9. Thiamine 100 mg p.o. daily. 10. Vitamin B12 of 1000 mcg p.o. daily. 11. Cannabidiol 2 drops sublingually daily. FOLLOWUP: The patient may follow up and establish care with [place], [place] after discharge. CONDITION ON DISCHARGE: Stable. ACTIVITY: Ad-priyanka. DIET: Heart healthy. CODE STATUS: Full. DISPOSITION: To home on 03/01/2020. TIME SPENT: Total time preparing and coordinating discharge, 34 minutes. Job ID: [id number]
== END 2020-03-01 11:05 | disposition home or self-care (01) | DRG 189 ==
LOC: ERS 21:53 → IMCU/EMU 02-24 01:20 → ONC 02-24 15:09
PROVIDERS: ADMIT Student in an Organized Health Care Education/Training Program; ATTEND Internal Medicine
PROC: 5A09357 Assistance with Respiratory Ventilation, Less than 24 Consecutive Hours, Continuous Positive Airway Pressure (ICD-10-PCS; principal; 2020-02-24)
DX: J96.01 Acute respiratory failure with hypoxia (principal); J44.1 Chronic obstructive pulmonary disease with (acute) exacerbation; Z20.828 Contact with and (suspected) exposure to other viral communicable diseases; I10 Essential (primary) hypertension; J96.02 Acute respiratory failure with hypercapnia; F12.10 Cannabis abuse, uncomplicated; Z86.73 Personal history of transient ischemic attack (TIA), and cerebral infarction without residual deficits; Z87.891 Personal history of nicotine dependence; Z88.1 Allergy status to other antibiotic agents; Z79.51 Long term (current) use of inhaled steroids; Z79.899 Other long term (current) drug therapy; E83.42 Hypomagnesemia
CPT/HCPCS: 0240U; 36415; 36600; 71045; 71275; 80048; 80053; 82805; 83735; 84484; 85025; 85379; 87040; 93005; 94760; 96365; 96366; 96367; 96375; J0692; J1200; J1650; J1956; J2920; J2930; J3370; J3475; J7512; J7611; J7620; S0028

== ENCOUNTER 2022-06-16 10:17 | Inpatient (IN) | payer SELFPAY ==
[2022-06-16 11:03] LABS: #Lymphocytes 1.6 thou/uL (1.20-3.40); #Monocytes 1.2 thou/uL (0.11-0.59); #Neutrophils 11.7 thou/uL (1.40-6.50); %Basophils 0.2 % (0.0-1.0); %Eosinophils 0.2 % (0.0-10.0); %Lymphocytes 10.7 % (21.0-51.0); %Monocytes 8.5 % (0.0-10.0); %Neutrophils 80.5 % (42.0-75.0); Hemoglobin 14.2 g/dL (14.0-18.0); Mean Corpuscular HGB CONC 33.2 g/dL (32.0-36.0); Mean Corpuscular Hemoglobin 31.7 pg (27.0-31.0); Mean Corpuscular Volume 95.4 fl (78.0-98.0); Platelet Count 210 10x3/uL (130-400); Red Blood Cell (RBC) Count 4.48 mill/uL (4.70-6.10); White Blood Cell (WBC) Count 14.5 10x3/uL (4.8-10.8)
[2022-06-16] MEDS ORDERED: Ipratropium/Albuterol 3 ML NEB ONE ×2 (11:04→14:06)
[2022-06-16] MEDS ORDERED: Iopamidol 370 76% 100 ML VIAL ONE (11:10)
[2022-06-16 11:14] LABS: ALT (SGPT) 8 U/L (8-55); AST (SGOT) 15 U/L (5-34); Alkaline Phosphatase 67 U/L (40-110); Anion Gap 19 mmol/L (10-20); BUN (Urea Nitrogen) 23 mg/dL (8.4-25.7); Bilirubin, Total 1.4 mg/dL (0.2-1.2); Calc. Creatinine Clearance 0 mL/min (70-130); Carbon Dioxide 20 mmol/L (23-31); Chloride 100 mmol/L (98-107); Estimated GFR 92; Globulin 2.3 g/dL (2.4-3.5); Glucose 109 mg/dL (80-115); Lipase 9 U/L (8-78); Potassium 4.6 mmol/L (3.5-5.1); Protein, Total 6.3 g/dL (5.8-8.1); Sodium 134 mmol/L (136-145)
[2022-06-16] MEDS ORDERED: cefTRIAXone (ROCEPHIN) 2 GM VIAL ONE (11:26)
[2022-06-16] MEDS ORDERED: Azithromycin 500 MG VIAL ONE (12:38)
[2022-06-16] MEDS ORDERED: Acetaminophen 325 MG TAB PO PRN (14:17)
[2022-06-16] MEDS ORDERED: methylPREDNISolone Sod Succ 40 MG VIAL IVP SCH (14:19)
[2022-06-16 15:16] VITALS: BMI 18.6
[2022-06-16 15:34] LABS: SARS-CoV-2 NAA Rapid Test Not Detected (NotDetected)
[2022-06-16] MEDS: Sodium Chloride 0.9% 1,000 ML IV SCH (15:52)
[2022-06-16 16:40] LABS: Troponin I Less than 0.010 ng/mL (< 0.028)
[2022-06-16 17:32] LABS: SARS-CoV-2 NAA Rapid Test Not Detected (NotDetected)
[2022-06-16] MEDS: methylPREDNISolone Sod Succ 40 MG VIAL IVP SCH ×2 (17:54→23:48)
[2022-06-16 18:27] LABS: Legionella Urinary Ag Negative (Negative); Strep pneumo Urine Ag NEGATIVE (NEGATIVE)
[2022-06-16] MEDS: Arformoterol 15 MCG/2 ML NEB NEB SCH (18:35)
[2022-06-16] MEDS: Ipratropium Bromide 2.5 ml Neb NEB SCH (18:37)
[2022-06-16] MEDS ORDERED: Atorvastatin Calcium 10 MG TAB PO SCH (21:00)
[2022-06-17] MEDS: Ipratropium Bromide 2.5 ml Neb NEB SCH ×2 (00:37→08:00)
[2022-06-17 05:10] LABS: #Lymphocytes 0.7 thou/uL (1.20-3.40); #Monocytes 0.5 thou/uL (0.11-0.59); #Neutrophils 8.9 thou/uL (1.40-6.50); %Basophils 0.1 % (0.0-1.0); %Eosinophils 0.1 % (0.0-10.0); %Lymphocytes 6.5 % (21.0-51.0); %Monocytes 4.4 % (0.0-10.0); %Neutrophils 88.9 % (42.0-75.0); Mean Corpuscular HGB CONC 34.8 g/dL (32.0-36.0); Mean Corpuscular Volume 94.8 fl (78.0-98.0); Mean Platelet Volume 7.6 fL (7.4-10.4); Platelet Count 187 10x3/uL (130-400); RBC Distribution Width 11.8 % (11.5-14.5); Red Blood Cell (RBC) Count 3.95 mill/uL (4.70-6.10); White Blood Cell (WBC) Count 10.1 10x3/uL (4.8-10.8)
[2022-06-17] MEDS: methylPREDNISolone Sod Succ 40 MG VIAL IVP SCH ×2 (05:32→11:30)
[2022-06-17] MEDS: Sodium Chloride 0.9% 1,000 ML IV SCH (05:35)
[2022-06-17 05:42] LABS: Anion Gap 12 mmol/L (10-20); BUN (Urea Nitrogen) 15 mg/dL (8.4-25.7); Calc. Creatinine Clearance 90 mL/min (70-130); Calcium 8.7 mg/dL (7.8-10.44); Carbon Dioxide 20 mmol/L (23-31); Chloride 105 mmol/L (98-107); Estimated GFR 105; Glucose 154 mg/dL (80-115); Potassium 3.9 mmol/L (3.5-5.1); Sodium 133 mmol/L (136-145)
[2022-06-17] MEDS: Arformoterol 15 MCG/2 ML NEB NEB SCH (07:59)
[2022-06-17 09:29] VITALS: TEMP 97.6
[2022-06-17 10:57] VITALS: BP 107/66
[2022-06-17] MEDS ORDERED: Ipratropium/Albuterol 3 ML NEB NEB SCH (13:00)
== END 2022-06-17 13:55 | disposition home or self-care (01) | DRG 871 ==
LOC: ERS 10:17 → 2NO 15:11
PROVIDERS: ADMIT Family Medicine; ATTEND Family Medicine
DX: A41.9 Sepsis, unspecified organism (principal); J18.9 Pneumonia, unspecified organism; J96.01 Acute respiratory failure with hypoxia; J44.1 Chronic obstructive pulmonary disease with (acute) exacerbation; J44.0 Chronic obstructive pulmonary disease with (acute) lower respiratory infection; E78.5 Hyperlipidemia, unspecified; I10 Essential (primary) hypertension; F17.210 Nicotine dependence, cigarettes, uncomplicated; Z79.51 Long term (current) use of inhaled steroids; Z79.899 Other long term (current) drug therapy
CPT/HCPCS: 36415; 71045; 71275; 80048; 80053; 83605; 83690; 83880; 84484; 85025; 87040; 87449; 87899; 93005; 94640; 94760; 96361; 96365; 96367; J0456; J0696; J1650; J1956; J2920; J7050; J7611; J7620; Q9967; U0002